=== PATIENT | male | born 1955 | race Caucasian/White ===

== ENCOUNTER 2023-01-01 08:30 | Emergency (ER) | payer OTHER ==
--- OUTSIDE RECORDS SUMMARY | 2023-01-01 08:34 | XMS REPORT | Clinical Summary ---
:1955 Author Organization [facility] MD [facility] Address [address] [place] [address] Care Team Providers Name Role Phone Deanna Sifuentes MD Unavailable Te Duque MD Primary Care Provider Leila Shelby [facility] Unavailable Unavailable Allergies Active Allergy Reactions Severity Noted Date Comments Sulfamethoxazole-Trimethoprim Hives High 08/19/2020 Sulfa (Sulfonamide Antibiotics) Hives High 0 Cimetidine Hives High 08/19/2020 Medications Medication Sig Dispensed Refills Start End Status Date Date verapamil (CALAN-SR) Take 1 tablet 0 08/05/20 Active 240 mg CR tablet by mouth 20 daily. fluticasone propionate Inhale 1 spray 0 Active (FLONASE) 50 mcg/spray into each nasal spray nostril as needed. atorvastatin (LIPITOR) Take 1 tablet 0 08/14/20 Active 40 mg tablet by mouth at 20 bedtime. aliskiren (TEKTURNA) Take 1 tablet 0 06/19/20 Active 150 mg tablet by mouth 20 daily. hydroCHLOROthiazide Take 1 tablet 0 Active (HYDRODIURIL) 25 mg by mouth tablet daily. fenofibrate Take 1 tablet 0 Acti ve nanocrystallized by mouth (TRICOR) 145 mg tablet daily. albuterol (VENTOLIN Inhale 1 puff 0 Active HFA,PROAIR HFA) 90 by mouth as mcg/puff inhaler needed. dicyclomine (BENTYL) Take 20 mg by 0 Active 20 mg tablet mouth twice daily. colesevelam (WELCHOL) Take 1,875 mg 0 Active 625 mg tablet by mouth 2 (two) times a day with meals. desvenlafaxine Take 100 mg by 0 Active (PRISTIQ) 100 mg 24 hr mouth daily. tablet eletriptan (RELPAX) 40 Take 40 mg by 0 Active MG tablet mouth as needed for migraine. may repeat in 2 hours if necessary atenolol (TENORMIN) 50 Take 50 mg by 0 Active mg tablet mouth. budesonide-formoterol Inhale 2 puffs 0 Active (SYMBICORT) 160-4.5 by mouth twice mcg/actuation inhaler daily. docusate sodium Take 1 capsule 30 capsule 0 09/26/20 Active (COLACE) 100 mg (100 mg) by 20 capsuleIndications: mouth 2 (two) Papillary thyroid times a day as carcinoma, needed for Post-surgical constipation. hypoparathyroidism, Postoperative hypothyroidism, Pyelonephritis, Severe sepsis without septic shock, not otherwise specified, Clostridioides difficile infection traMADol (ULTRAM) 50 Take 2 tablets 20 tablet 0 09/26/20 Active mg tabletIndications: (100 mg) by 20 Papillary thyroid mouth every 6 carcinoma (six) hours as needed for moderate pain. enoxaparin (Lovenox) Inject 0.9 mL 2 Syringe 0 10/02/20 Active 150 mg/mL prefilled (135 mg) under 20 syringeIndications: the skin every Hypercoagulable state 12 (twelve) hours. ergocalciferol Take 1 capsule 12 capsule 3 11/05/20 Active (DRISDOL) 50,000 units (50,000 Units) 20 capsuleIndications: by mouth every Vitamin D deficiency, 7 days. not otherwise specified rivaroxaban (XARELTO) Take 20 mg by 0 Active 20 mg tablet mouth daily. bumetanide (BUMEX) 1 Take 1 mg by 0 Active mg tablet mouth as needed. UNABLE TO FIND Hydrocortisone 0 Active -Acetic Acid 3-5 drops Ear prn eszopiclone (LUNESTA) Take 1 tablet 0 05/20/20 Active 2 mg tablet by mouth as 21 needed. omeprazole (PriLOSEC) Take 1 capsule 0 05/05/20 Active 40 MG capsule by mouth 21 daily. traZODone (DESYREL) Take 1 tablet 0 03/06/20 Active 300 mg tablet by mouth at 22 bedtime. ketoconazole (NIZORAL) Apply 1 0 06/20/20 Active 2% shampoo application 22 topically to affected area(s) daily. For psoriasis ketoconazole (NIZORAL) Apply 1 0 Active 2% cream application topically to affected area(s) as needed. For psoriasis rosuvastatin (CRESTOR) Take 1 tablet 0 10/17/20 Active 20 mg tablet by mouth 21 daily. potassium chloride Take 20 mEq by 0 Active (K-DUR,KLOR-CON M) 20 mouth as mEq tablet needed for hypokalemia. cholecalciferol, Take 5,000 0 Ac tive vitamin D3, (VITAMIN Units by mouth D3) 5,000 units tab daily. tablet Lactobacillus Take 1 tablet 0 Ac tive acidophilus (PROBIOTIC by mouth ORAL) daily. liothyronine (Cytomel) Take 1 tablet 90 tablet 3 06/18/20 Active 5 mcg (5 mcg) by 22 tabletIndications: mouth daily. Postoperative hypothyroidism levothyroxine Take 1 tablet 90 tablet 3 11/22/19 Ac tive (SYNTHROID, (300 mcg) by 23 LEVOTHROID) 300 mcg mouth daily. tabletIndications: Papillary thyroid carcinoma, Acquired hypothyroidism levothyroxine Take 2 tablets 180 tablet 3 02/11/20 Discontinued (SYNTHROID, (274 mcg) by 21 023 (Reor duy) LEVOTHROID) 137 mcg mouth daily. tabletIndications: Papillary thyroid carcinoma, Acquired hypothyroidism phentermine 37.5 MG Take 37.5 mg 0 05/29/20 capsule by mouth 22 022 daily. Active Problems Problem Noted Date Long-term drug therapy 02/10/2021 Post-surgical hypoparathyroidism 09/26/2020 Postoperative hypothyroidism 09/26/2020 Pyelonephritis 09/10/2020 Severe sepsis without septic shock 09/10/2020 Clostridioides difficile infection 09/10/2020 Papillary thyroid carcinoma 08/26/2020 Cancer Staging: Clinical: Stage II (cT1b , cN1b, cM0, Age at diagnosis: >= 55 years) - Signed by JAZMIN Kwok on 08/26/2020 Encounters Date Type Specialty Care Team Description 11/22/2022 Orders Only Endocrinology Amena Silvestre, Papillary thyroid carcinoma; PAPER CUTTER Acquired hypoth yroidism 11/18/2022 Documentation Endocrinology Walter Valderrama RN 10/16/2022 Orders Only Endocrinology Silvestre, Amena R, Postopera tive PAPER CUTTER hypothyroidism (Primary Dx) 09/29/2022 Documentation Endocrinology Walter Valderrama RN 06/18/2022 Office Visit Endocrinology Génesis Delarosa, Papillar y thyroid carcinoma (Primary Dx); Postoperative h ypothyroidism; Long-term drug therapy 06/18/2022 Ancillary Procedure Radiology Amena Silvestre R, Pap illary thyroid PAPER CUTTER carcinoma 06/18/2022 Ancillary Procedure Radiology Amena Silvestre R, Pap illary thyroid PAPER CUTTER carcinoma 06/18/2022 Hospital Encounter Lab Amena Silvestre R, Yossi llary thyroid PAPER CUTTER carcinoma 06/18/2022 Travel after 01/01/2022 Immunizations Name Administration Dates Next Due H1N1 All Forms 10/15/2009 Influenza (IM) Preservative Free 08/15/2009 Pneumococcal Conjugate 08/15/2007 Surgical History Surgery Date Site/Laterality Comments COLONOSCOPY 11/15/2006 - then about every 5 years. 11/14/2007 last 6 years ago . HERNIA REPAIR 11/15/2019 - bilateral 11/14/2020 CHOLECYSTECTOMY 11/15/2006 - 11/14/2007 UPPER GASTROINTESTINAL 11/15/2006 - then abou t every 5 years. ENDOSCOPY 11/14/2007 last 6 years ago . IVC FILTER PLACEMENT 11/15/2007 - removed 201 01/201411/14/2008 TN THYROIDECTOMY 09/25/2020 Neck/Bilateral Procedure: TOTA L OR TOTAL/COMPLETE COMPLETE THYROID ECTOMY WITH BILATERAL C ENTRAL NECK DISSECTION; Surgeon: Te Duque MD; Location: MAIN O R; Service: [facility] - HE AD & NECK SURGERY TN CERVICAL LYMPHADEC 09/25/2020 Neck/Right Procedure: RIGHT LATERAL MODIFIED RADICAL NECK DSJ LEVEL II-IV NECK DISSECTION; Surg tarah: Te Duque MD; L ocation: MAIN OR; Service : [facility] - HEAD & NECK SURG [place] Medical History Medical History Date Comments Cancer Gastroesophageal reflux disease Hypertension Hyperlipidemia 1985 Thrombosis 2004 with PE, then 2 jacklyn tional episodes of DVT's Migraine 2008 Cluster headaches Hearing loss 2016 hearing aids Functional visual loss 1964 eyeglasses Allergic rhinitis 1985 year round seasonal allergies, sinus too Pulmonary embolism 2004 Dependence on continuous positive 1994 airway pressure ventilation Gastric reflux 1996 Medel's Esophagus Gastric ulcer 1978 None since Diverticulitis 1996 Irritable bowel syndrome 1996 Blood coagulation disorder 2004 Hypercoagulat ion Arthritis 2010 Depressive disorder 1972 My dad when I w as 16. Sporadic depression since. Papillary thyroid carcinoma 2019 Papillary thyroid carcinoma 08/26/2020 Sleep apnea uses cpap Family History Medical History Relation Name Comments Thyroid disease Brother hypothyroidism Thyroid disease Father hyperthyroidism Lung cancer Paternal Grandfather Wood Omer it started in lungs then went all over Relation Name Status Comments Brother Father Paternal Grandfather Wood Omer Social History Tobacco Use Types Packs/Day Years Used Date Smoking Tobacco: Former Cigarettes 0 15 Pipe Cigars Smokeless Tobacco: Former Qu it: 05/18/1991 Alcohol Use Standard Drinks/Week Comments Not Currently 0 (1 standard drink = 0.6 oz pure alcoho l) None since 1987 Sex Assigned at Date Recorded Not on file Job Start Date Occupation Industry Not on file Not on file Not on file Obstetrics History Last Filed Vital Signs Vital Sign Reading Time Taken Comments Blood Pressure 149/94 06/18/2022 1:26 PM CDT Pulse 63 06/18/2022 1:26 PM CDT Temperature 37 C (98.6 F) 06/18/2022 1:26 PM CDT Respiratory Rate 16 06/18/2022 1:26 PM CDT Oxygen Saturation 95% 06/18/2022 1:26 PM CDT Inhaled Oxygen Concentration - - Weight 139.3 kg (307 lb 1.6 oz) 06/18/2022 1:26 PM CDT Height - - Body Mass Index 45.49 10/02/2020 2: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 Plan of Treatment Date Type Specialty Care Team Description 06/21/2023 Appointment Lab Aemna Silvestre APN [address] [place], [place] [address] ([place]) 06/21/2023 Ancillary Procedure Radiology Itzel Silvestre APN [address], [place] [address] ([place]) 06/21/2023 Ancillary Procedure Radiology Itzel Silvestre APN [address], [place] [address] ([place]) 06/21/2023 Follow-Up Endocrinology Nina Delarosa MD [address], [place] [address] ([place]) Health Maintenance Due Date Last Done Comments COVID-19 Vaccination (#1) 1955 Procedures Procedure Name Priority Date/Time Associated Comments Diagnosis CT CHEST W CONTRAST Routine 06/18/2022 11:35 Papillary thyroid Results for this AM CDT carcinoma procedure are i n the results section. POC CREATININE Routine 06/18/2022 10:52 Results f or this AM CDT procedure are i n the results section. US HEAD NECK SOFT Routine 06/18/2022 10:27 Papillary thyroid R esults for this TISSUE AM CDT carcinoma procedure are i n the results section. THYROGLOBULIN ANTIBODY Routine 06/18/2022 8:56 AM Papillary th yroid Results for this CDT carcinoma procedure are i n the results section. FREE THYROXINE Routine 06/18/2022 8:56 AM Papillary thyroid Re sults for this CDT carcinoma procedure are i n the results section. THYROID STIMULATING Routine 06/18/2022 8:56 AM Papillary thyro id Results for this HORMONE CDT carcinoma procedure are i n the results section. after 01/01/[address] Chest with Contrast (06/18/2022 11:35 AM CDT) Anatomical Region Laterality Modality Chest Computed Tomography Specimen (Source) Anatomical Collection Method Collection Time Re ceived Time Location / / Volume Laterality 06/18/2022 1:10 PM CDT Impressions 06/18/2022 1:15 PM CDT Small lung nodules not exceeding 5 mm ar e unchanged from 2019 and remain nonspecific. Narrative 06/18/2022 1:15 PM CDT FULL RESULT: Examination: CT Chest with IV contrast, 06/18/2022 11:35 AM Clinical History: Papillary thyroid carc inoma Indication: Cancer staging or restaging Comparison: Chest CT 06/16/2021; [facility] chest CT 09/08/2020 Technique: Contiguous CT images through the chest were acquired following the administration of intravenous contrast. Coronal and sagittal multiplanar reformats and maximum intensity projection (MIP) images were performed. Findings: The thyroid gland is resected. For complete evaluation of the surgical bed please see separately reported ultrasound neck 06/18/2022. There is a 2 mm left upper lobe nodule ( image 51, series 302) and a 5 mm right lower lobe nodule (image 70), both unchanged from 2020. No new or enlarging pulmonary nodule. No acute infectious consolidation. No pleural effusion. No enlarged mediastinal, hilar or axilla ry lymph nodes by CT size criteria. The heart is normal in size without ruben cardial effusion. The thoracic aorta and main pulmonary trunk are normal in diameter. The esophagus is nondistended and normal in course. Images through the upper abdomen demonstrate prior cholecystectomy. No focal hepatic or splenic lesion. There are accessory splenules. The adrenal gla nds have normal morphology. The upper po les of the kidneys are within normal limits. No bone lesion or acute bone fracture in the thorax. Procedure Note de Ana Corado MD - 06/18/2022Forma tting of this note might be different from the original. FULL RESULT: Examination: CT Chest with IV contrast, 06/18/2022 11:35 AM Clinical History: Papillary thyroid carc inoma Indication: Cancer staging or restaging Comparison: Chest CT 06/16/2021; [facility] chest CT 09/08/2020 Technique: Contiguous CT images through the chest were acquired following the administration of intravenous contrast. Coronal and sagittal multiplanar reformats and maximum intensity projection (MIP) images were performed. Findings: The thyroid gland is resected. For complete evaluation of the surgical bed please see separately reported ultrasound neck 06/18/2022. There is a 2 mm left upper lobe nodule ( image 51, series 302) and a 5 mm right lower lobe nodule (image 70), both unchanged from 2020. No new or enlarging pulmonary nodule. No acute infectious consolidation. No pleural effusion. No enlarged mediastinal, hilar or axilla ry lymph nodes by CT size criteria. The heart is normal in size without ruben cardial effusion. The thoracic aorta and main pulmonary trunk are normal in diameter. The esophagus is nondistended and normal in course. Images through the upper abdomen demonstrate prior cholecystectomy. No focal hepatic or splenic lesion. There are accessory splenules. The adrenal glands have normal morphology. The upper poles of th e kidneys are within normal limits. No bone lesion or acute bone fracture in the thorax. IMPRESSION: Small lung nodules not exceeding 5 mm ar e unchanged from 2019 and remain nonspecific. Amena Silvestre APN G CT ORDERABLES POC Creatinine (06/18/2022 10:52 AM CDT) P athologist Signature POC Crea 1.2 0.6 - 1.3 POC [facility] mg/dL Comment: Medications, especially hydroxyurea or s upplements, such as ascorbate, can interfere with test results causing a falsely and significantly higher result than expected. If a problem is suspected with a patient's result, a sample should be sent to the laboratory for confirmatory testing. Method description: The i-STAT is an jodi lyzer used for in vitro quantification of various analytes in whole blood. The device uses a single disposable cartridge which contains microfabricated sensors, a calibration solution, fluidics system, and a waste chamber. Each test cartridge contains ch emically sensitive biosensors on a silicon chip that are configured to perform specific tests. The microfabricated sensors measure analyte concentration by an electrochemical assay. POC eGFR-AA 73 >=60 mL/min/1.73 m2 POC [facility] OR Comment: Normal eGFR >= 60 mL/min/1.73 m2 The eGFR is calculated using the CKD-EPI equation. The eGFR declines with age. eGFR <60 mL/min/1.73 m2 is considered as "decreased" This equation should only be used for patients 18 and older. According to the National Kidney Found[employer] ion's Kidney Disease Outcome Quality Initiative (KDOQI) classification and 2012 Kidney Disease Improving Global Outcomes (KDIGO) Clinical Practice Guideline, the stage of CKD should be categorized based on estimated GFR. Stage Description GFR mL/min/1.73 m2 1 Kidney damage with normal or high GFR >=90 2 Kidney damage with mild decrease in GF R 60-89 3a Mild to moderate decrease in GFR 45-59 3b Moderate to severe decrease in GFR 30-44 4 Severe decrease in GFR 15-29 5 Kidney failure <15 (or dialysis) POC eGFR-NERIS 63 >=60 mL/min/1.73 m2 POC [facility] Comment: Normal eGFR >= 60 mL/min/1.73 m2 The eGFR is calculated using the CKD-EPI equation. The eGFR declines with age. eGFR <60 mL/min/1.73 m2 is considered as "decreased" This equation should only be used for patients 18 and older. According to the National Kidney Foundat ion's Kidney Disease Outcome Quality Initiative (KDOQI) classification and 2012 Kidney Disease Improving Global Outcomes (KDIGO) Clinical Practice Guideline, the stage of CKD should be categorized based on estimated GFR. Stage Description GFR mL/min/1.73 m2 1 Kidney damage with normal or high GFR >=90 2 Kidney damage with mild decrease in GF R 60-89 3a Mild to moderate decrease in GFR 45-59 3b Moderate to severe decrease in GFR 30-44 4 Severe decrease in GFR 15-29 5 Kidney failure <15 (or dialysis) POC Clean Dev Yes POC [facility] Performing Lab [facility] POC TELCO R Comment: [facility], [address] [place] [address]; Lab Direct or: Stephie Lewis MD Specimen Anatomical Collection Method Collection Time Receive d Time (Source) Location / / Volume Laterality Blood 06/18/2022 10:52 06/18/2022 AM CDT 10:52 AM CDT Amena Silvestre APN POCT ORDERABLES - DEVICE Performing Organization Address City/State/ZIP Code Phon e Number POC [facility] Unless otherwise noted, [place] [address] lab tests performed by: Division of Pathology and Laboratory Medicine [address] [place] [address] POC [facility] US Head Neck Soft Tissue (06/18/2022 10:27 AM CDT) Anatomical Region Laterality Modality Head, Neck Ultrasound Specimen (Source) Anatomical Collection Method Collection Time Re ceived Time Location / / Volume Laterality 06/18/2022 10:20 AM CDT Impressions 06/18/2022 11:03 AM CDT 1. Tiny indeterminate nodules in the thyroidectomy bed are favored benign, to be followed. 2. No cervical adenopathy. Narrative 06/18/2022 11:03 AM CDT FULL RESULT: Examination: US HEAD NECK SOFT TISSUE on 06/18/2022 10:27 AM Clinical History: 67-year-old male with history of papillary thyroid carcinoma. Indication: Follow-up Comparison: Technique: Real-time ultrasound examinat ion of the neck soft tissues was performed. FINDINGS: Right Thyroid Bed: A small nodule rabbet operator ior to the carotid in the right thyroidectomy bed is stable and measures 0.4 x 0.9 x 0.3 cm. Left Thyroid Bed: Clear. Suprasternal and Superior Mediastinal: T wo tiny nodules in the suprasternal compartment measures 0.3 x 0.3 x 0.2 cm and 0.4 x 0.3 x 0.3 cm. These are favored to represent benign lymph nodes. Right Lateral Neck: Clear. Left Lateral Neck: A lymph node in the l eft mid to inferior neck measures 1.4 x 1.6 x 0.7 cm and demonstrates prominent slightly irregular central fatty hilum. Correlation with CT neck dated 06/16/2021 an d dating back to 08/26/2020 demonstrates a lymph node in this location which has remained stable in size and appearance. Submental to Cricoid: Clear. Procedure Note Gem Miller MD - 06/18/2022 FULL RESULT: Examination: US HEAD NECK SOFT TISSUE on 06/18/2022 10:27 AM Clinical History: 67-year-old male with history of papillary thyroid carcinoma. Indication: Follow-up Comparison: Technique: Real-time ultrasound examinat ion of the neck soft tissues was performed. FINDINGS: Right Thyroid Bed: A small nodule rabbet operator ior to the carotid in the right thyroidectomy bed is stable and measures 0.4 x 0.9 x 0.3 cm. Left Thyroid Bed: Clear. Suprasternal and Superior Mediastinal: T wo tiny nodules in the suprasternal compartment measures 0.3 x 0.3 x 0.2 cm and 0.4 x 0.3 x 0.3 cm. These are favored to represent benign lymph nodes. Right Lateral Neck: Clear. Left Lateral Neck: A lymph node in the l eft mid to inferior neck measures 1.4 x 1.6 x 0.7 cm and demonstrates prominent slightly irregular central fatty hilum. Correlation with CT neck dated 06/16/2021 and dating back to 08/26/2020 demonstrates a lymph node in this location which has remained stable in size and appearance. Submental to Cricoid: Clear. IMPRESSION: 1. Tiny indeterminate nodules in the thy roidectomy bed are favored benign, to be followed. 2. No cervical adenopathy. Amena Silvestre APN IMG US ORDERABLES (ABNORMAL) Thyroglobulin (06/18/2022 8:56 AM CDT) Analysis Performed At Patho logist Time Signature Thyroglobulin <0.10 (L) 1.59 - UT 50.03 [facility] ng/mL [facility] Comment: Reference range in athyrotic patients is <0.1 ng/mL. Due to varying antigen specificity, affi nity and avidity of capture and conjugate antibodies in their epitope reactions, some thyroglobulin samples may not dilute linearly when results exceed 450 ng/mL. Thyroglob Ab <0.9 <=3.9 IU/ml [facility] [place] Comment: Due to varying antigen specific ity, affinity and avidity of capture and conjugate antibodies in their epitope re actions, some thyroglobulin antibody samples may not dilute linearly when results exc eed 1650 IU/mL. Specimen Anatomical Collection Method Collection Time Receive d Time (Source) Location / / Volume Laterality Blood 06/18/2022 8:56 AM 2 9:23 CDT AM CDT Amena Silvestre APN LAB BLOOD ORDERABLES Performing Organization Address City/[facility]/ZIP Code Phon e Number [facility] Unless otherwise noted, [place] [address] [place] all lab tests performed by: Division of Pathology and Laboratory Medicine [address] [place], [place] [address] (ABNORMAL) TSH (06/18/2022 8:56 AM CDT) P athologist Signature TSH 8.63 (H) 0.27 - 4.20 [facility] mcunit/mL Comment: Note: New Methodology and Reference Ra nge change effective 03/03/2018 at 1400 Testing Performed at [facility] Lab [facility], [address] [place] [address], [address], [place] [address] Specimen Anatomical Collection Method Collection Time Receive d Time (Source) Location / / Volume Laterality Blood 06/18/2022 8:56 AM 2 9:05 CDT AM CDT Amena Silvestre PAPER CUTTER LAB BLOOD ORDERABLES Performing Organization Address City/[facility]/ZIP Code Phon e Number [facility] [address] [place] [address]. [place] [address] [address] Free T4 (06/18/2022 8:56 AM CDT) athologist Signature T4 Free 1.45 0.93 - 1.70 [facility] ng/dL Comment: Testing Performed at [facility] Lab Am [facility], [address], [address], [place] [address] Specimen Anatomical Collection Method Collection Time Receive d Time (Source) Location / / Volume Laterality Blood 06/18/2022 8:56 AM 9:05 CDT AM CDT Amena Silvestre APN LAB BLOOD ORDERABLES Performing Organization Address City/State/ZIP Code Phon e Number [facility] [address] [place] [address] [address] after 01/01/2022 Insurance Payer Benefit Plan / Subscriber ID Effective Phone Address T ype Group Dates [facility] MEDICARE [id number] 2022-Prese [address] [address] Medicare HEALTHCARE ADVANTAGE [place] [id number] Advance Directives Code Status Date Activated Date Inactivated Comments Full Code 09/25/2020 4:58 PM 09/26/2020 7:53 PM Code Status Date Activated Date Inactivated Comments Full Code 09/09/2020 4:17 AM 09/13/2020 5:34 PM Care Teams Magazine Keeper Relationship Specialty Start Date End Date Deanna Sifuentes MD PCP - External Medical Oncology 07/25/[address] Referring [address] [place] [address] Te Duque MD PCP - General Head and Neck 08/09/20 [address] [place] [address] Leila Shelby, Speech Language Speech Pathology 09/26/20 CCC-NUCLEAR PHARMACIST Pathologist
--- OUTSIDE RECORDS SUMMARY | 2023-01-01 08:37 | XMS REPORT | Continuity of Care Document ---
:1955 Author Organization [facility] t Address [address] [place] [address] Dr. Tejeda[address] [place] [address] Care Team Providers Name Role Phone REE DOZIER Primary Care Physician Unavailable SYSTEM, PROVIDER NOT IN Attending Clinician Unavailable CHRIST VIDALES Attending Clinician Unavailable Amena Lgoan APN Attending Clinician Jannie BURGOS, Walter Narvaez Attending Clinician AMENA LOGAN Attending Clinician Unavailable DR REE DOZIER Attending Clinician Unavailable [phone] Attending Clinician Unavailable AMENA LOGAN Attending Clinician Unavailable Génesis Delarosa MD Attending Clinician GÉNESIS DELAROSA Attending Clinician Unavailable [email or web address]_R Attending Clinician Unavailable Ruba Arce Attending Clinician [phone] Yan_W Attending Clinician Unavailable IHDE_G Attending Clinician Unavailable DR PAN TEJADA Attending Clinician Unavailable LEYDI BANKS Attending Clinician Unavailable MONSERRAT FERRARI Attending Clinician Unavailable Raju_P Attending Clinician Unavailable MARILYN BRADSHAW Attending Clinician Unavailable LOIS LÓPEZ Attending Clinician Unavailable FABIEN LANGLEY Attending Clinician Unavailable EDMUND OLIVEROS Attending Clinician Unavailable JORGE A BROOKS Attending Clinician Unavailable JUSTO RAMIREZ Attending Clinician Unavailable HENRY MARTÍNEZ Attending Clinician Unavailable DANNY PAULA Attending Clinician Unavailable Bear Nichols Attending Clinician Unavailable Bear Nichols Attending Clinician Unavailable CHRIST VIDALES Admitting Clinician Unavailable DR REE DOZIER Admitting Clinician Unavailable GC_WPSA_Awan_R Admitting Clinician Unavailable Yan_W Admitting Clinician Unavailable IHDE_G Admitting Clinician Unavailable DR PAN TEJADA Admitting Clinician Unavailable Rajakin_P Admitting Clinician Unavailable LEATHA PALMER Admitting Clinician Unavailable Bear Nichols Admitting Clinician Unavailable Payers Payer Name Policy Type Policy Number Effective Date Expiration Date [facility] [id number] HEALTHSELECT-WALK/[place] [id number] 2017 BLUE/BLUE 00:00:00 [employer]SSENTIALS [facility] [id number] (MEDICARE REPLACEMENT/ADVANTA GE - PPO) [place]: [id number] [employer] [place] [id number] 2017 (POS) 00:00:[place] [id number] 2017 00:00:[place] [id number] 2017 ADVANTAGE (HMO) 00:00:00 Problems Condition Condition Condition Status Onset Resolution Last Treating Co mments Source Name Details Category Date Date Treatment Clinician Date Hypothyroi Hypothyroi Problem Active M [facility] dism dism 8-17 da 00:00: Medical 00 Group Hypertensi Hypertensi Problem Active M [facility] ve ve 8-17 da disorder Disorder 00:00: Medica l 00 Group Irritable Irritable Problem Active [place] bowel Bowel 8-17 da syndrome Syndrome 00:00: Medica l Group Serum Serum Problem Active [place] triglyceri Triglyceri 8 da cassandra cassandra 00:00: Medical borderline Borderline 00 Gr oup high High Long-term Long-term Disease Active Uni vers drug drug 3-29 ity of therapy therapy 00:00: [place] 00 MD [facility] Post-surgi Post-surgi Disease Active 2019- U nivelise isaac isaac 1-12 ity of hypoparath [place] y[place] yroidism 00 MD Tonya leonard [facility] Postoperat Postoperat Disease Active 2019- U shyam andreina andreina 1-12 ity of hypothyroi [place]ro[place] dis[place] dism 00 MD Tonya leonard [facility] Pyelonephr Pyelonephr Disease Active 2019-11 U shyam itis itis 0-27 ity of 00:00: [place] 00 MD Tonya leonard [facility] Severe Severe Disease Active 2019-11 Univers sepsis sepsis 0-27 ity of without without 00:00: [place] septic septic 00 shock shock [facility] Clostridio Clostridio Disease Active 2019-11 U shyam ides ides 0-27 ity of difficile difficile 00:00: [place] rashid infection infection 00 MD Tonya leonard [facility] 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 00:00: [place] s 00 MD Tonya leonard [facility] Migraine Migraine Problem Active [facility] 2-17 Medical 00:00: 00 Decreased Decreased Problem Active Cha via hearing Hearing 2-17 Medical 00:00: 00 Decreased Decreased Problem Active Cha via testostero Testostero 2-17 Me dical ne level ne Level 00:00: 00 Hyperlipid Hyperlipid Problem Active P rivia emia emia 8- Medical 00:00: 00 Insomnia Insomnia Problem Active [facility] 8-22 Medical 00:00: 00 Cluster Cluster Problem Active [facility]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 Headache 07-06 Medica l 00:00: 00 Hypertensi Hypertensi Problem Active P [facility]ia ve ve - Medical disorder Disorder 00:00: 00 Seasonal Seasonal Problem Active [facility] allergy Allergy - Medical 00:00: 00 Acid Acid Problem Active [facility] reflux Reflux - Medical 00:00: 00 Allergies, Adverse Reactions, Alerts Allergy Allergy Status Severity Reaction(s) Onset Inactive Treating Comm ents Source Name Type Date Date Clinician SULFAMET DRUG Active Hives 2020- MD HOXAZOLE 0-05 Anderso -TRIMETH 00:00: n OPRIM 00 SULFA Drug Active Hives 2020-1 MD (SULFONA Class 0-05 Anderso MIDE 00:00: n ANTIBIOT 00 ICS) CIMETIDI DRUG Active Hives 2020-1 NE INGREDI 0-05 Anderso 00:00: n 00 SULFAMET DRUG Active Hives 2020-1 MD HOXAZOLE 0-05 Anderso -TRIMETH 00:00: n OPRIM 00 SULFA Drug Active Hives 2020-1 MD (SULFONA Class 0-05 Anderso MIDE 00:00: n ANTIBIOT 00 ICS) CIMETIDI DRUG Active Hives 2020-1 NE INGREDI 0-05 Anderso 00:00: n 00 SULFAMET DRUG Active Hives 2020-1 MD HOXAZOLE 0-05 Anderso -TRIMETH 00:00: n OPRIM 00 SULFA Drug Active Hives 2020-1 MD (SULFONA Class 0-05 Anderso MIDE 00:00: n ANTIBIOT 00 ICS) CIMETIDI DRUG Active Hives 2020-1 NE INGREDI 0-05 Anderso 00:00: n 00 SULFAMET DRUG Active Hives 2020-1 MD HOXAZOLE 0-05 Anderso -TRIMETH 00:00: n OPRIM 00 SULFA Drug Active Hives 2020-1 MD (SULFONA Class 0-05 Anderso MIDE 00:00: n ANTIBIOT 00 ICS) CIMETIDI DRUG Active Hives 2020-1 NE INGREDI 0-05 Anderso 00:00: n 00 SULFAMET DRUG Active Hives 2020-1 MD HOXAZOLE 0-05 Anderso -TRIMETH 00:00: n OPRIM 00 SULFA Drug Active Hives 2020-1 MD (SULFONA Class 0-05 Anderso MIDE 00:00: n ANTIBIOT 00 ICS) CIMETIDI DRUG Active Hives 2020-1 NE INGREDI 0-05 Anderso 00:00: n 00 SULFAMET DRUG Active Hives 2020-1 MD HOXAZOLE 0-05 Anderso -TRIMETH 00:00: n OPRIM 00 SULFA Drug Active Hives 2020-1 MD (SULFONA Class 0-05 Anderso MIDE 00:00: n ANTIBIOT 00 ICS) CIMETIDI DRUG Active Hives 2020-1 MD NE INGREDI 0-05 Anderso 00:00: n 00 SULFAMET DRUG Active Hives 2020-1 MD HOXAZOLE 0-05 Anderso -TRIMETH 00:00: n OPRIM 00 SULFA Drug Active Hives 2020-1 MD (SULFONA Class 0-05 Anderso MIDE 00:00: n ANTIBIOT 00 ICS) CIMETIDI DRUG Active Hives 2020-1 MD NE INGREDI 0-05 Anderso 00:00: n 00 SULFAMET DRUG Active High Hives 2020-1 MD HOXAZOLE 0-05 Anderso -TRIMETH 00:00: n OPRIM 00 SULFA Drug Active High Hives 2020-1 MD (SULFONA Class 0-05 Anderso MIDE 00:00: n ANTIBIOT 00 ICS) CIMETIDI DRUG Active High Hives 2020-1 MD NE INGREDI 0-05 Anderso 00:00: n 00 SULFAMET DRUG Active High Hives 2020-1 MD HOXAZOLE 0-05 Anderso -TRIMETH 00:00: n OPRIM 00 SULFA Drug Active High Hives 2020-1 MD (SULFONA Class 0-05 Anderso MIDE 00:00: n ANTIBIOT 00 ICS) CIMETIDI DRUG Active High Hives 2020-1 MD NE INGREDI 0-05 Anderso 00:00: n 00 SULFAMET DRUG Active High Hives 2020-1 MD HOXAZOLE 0-05 Anderso -TRIMETH 00:00: n OPRIM 00 SULFA Drug Active High Hives 2020-1 MD (SULFONA Class 0-05 Anderso MIDE 00:00: n ANTIBIOT 00 ICS) CIMETIDI DRUG Active High Hives 2020-1 MD NE INGREDI 0-05 Anderso 00:00: n 00 SULFAMET DRUG Active High Hives 2020-1 MD HOXAZOLE 0-05 Anderso -TRIMETH 00:00: n [place]PR[place] 00 SULFA Drug Active High Hives 2020-1 MD (SULFONA Class 0-05 Anderso MIDE 00:00: n ANTIBIOT 00 ICS) CIMETIDI DRUG Active High Hives 2020-1 MD NE INGREDI 0-05 Anderso 00:00: n 00 SULFAMET DRUG Active High Hives 2020-1 MD HOXAZOLE 0-05 Anderso -TRIMETH 00:00: n OPR[place] 00 SULFA Drug Active High Hives 2020-1 MD (SULFONA Class 0-05 Anderso MIDE 00:00: n ANTIBIOT 00 ICS) CIMETIDI DRUG Active High Hives 2020-1 NE INGREDI 0-05 Anderso 00:00: n 00 SULFAMET DRUG Active High Hives 2020-1 HOXAZOLE 0-05 Anderso -TRIMETH 00:00: n OPRIM 00 SULFA Drug Active High Hives 2020-1 (SULFONA Class 0-05 Anderso MIDE 00:00: n ANTIBIOT 00 ICS) CIMETIDI DRUG Active High Hives 2020-1 NE INGREDI 0-05 Anderso 00:00: n 00 Sulfamet Propensi Active Hives 2020- Univer s hoxazole ty to 0-05 ity of -Trimeth adverse 00:00: [place] oprim reaction 00 MD rachid Castaneda [facility] Sulfa Propensi Active Hives 2020-1 Univers (Sulfona ty to 0-05 ity of mide adverse 00:00: [place] Antibiot reaction 00 ics) [facility] Cimetidi Propensi Active Hives 2020- Univer s ne ty to 0-05 ity of adverse 00:00: [place] reaction 00 [facility] SULFA Allergy Active [facility] (SULFONA to Medical MIDE substanc ANTIBIOT e ICS) sulfa Drug Active hives [facility] Bactrim Drug Active hives [facility] No Known Drug Active [facility] Sulfa DA Active Unknown Hives [facility] (Sulfona Medical mides) Center Tagamet DA Active Unknown Hives [facility] Bactrim DA Active Unknown Hives [facility] BACTRIM DA Active UNKNOWN Anaphylaxis [facility] SULFA DA Active UNKNOWN Anaphylaxis [place] [facility] [place] [facility] TAGAMET Allergy Active Rash [place] to da substanc Medical e Group CIMETIDI DA Active UNKNOWN Hives [facility] Bactrim Allergy Active Rash [facility] to Medical substan e Family History Family Member Diagnosis Comments Start Date Stop Date Source Natural brother Thyroid disease Univ ersity of [facility] Natural father Thyroid disease Unive rsity of [facility] Paternal grandfather Lung cancer Uni versity of [facility] Social History Social Habit Start Date Stop Date Quantity Comments Source History of Current smoker University of tobacco use [place] MD Still [facility] Alcohol intake 2020-10-02 2020-10-02 Ex-drinker University 00:00:00 00:00:00 (finding) [place] MD Higgins [facility] Cigarette 2020-08-26 2020-08-26 University of pack-years 00:00:00 00:00:00 Ying Higgins [facility] Tobacco use and 2020-08-26 2020-08-26 Former smokeless Uni versity of exposure 00:00:00 00:00:00 tobacco user Ying Zhao [facility] Alcohol Comment 2020-08-26 2020-08-26 None since 1987 Univ ersity of 00:00:00 00:00:00 [place] MD Higgins [facility] Sex [birth year] Universit y of 00:00:00 00:00:00 [place] MD Higgins [facility] Smoking Status Start Date Stop Date Source Tobacco smoking [facility] consumption unknown Ex-smoker 2020-08-26 00:00:00 2020-08-26 [facility] [facility] f Ying MARRERO 00:00:00 [facility] Medications Ordered Filled Start Stop Current Ordering Indication Dosage Frequency Signature Comments Components Source Medication Medication Date Date Medication? Clinician (SIG) Name Name levothyroxi Yes Acquired 300ug Take 1 Univers ne 1-08 hypothyroid tablet ity of (SYNTHROID, 00:00: ism (300 mcg) [place] LEVOTHROID) 00 by mouth 300 mcg daily. Anderso tablet [facility] potassium Yes 20meq Take 20 Univ ers chloride 8-04 mEq by ity of (K-DUR,KLOR 14:14: [place] -CON M) 20 32 needed for mEq tablet hypokalemi And erso a. n [facility] cholecalcif Yes 5000U Take 5,000 Univers tj, 8-04 Units by ity of vitamin D3, 14:14: mouth [place] (VITAMIN 32 daily. D3) 5,000 Anderso units tab n tablet [facility] Lactobacill Yes 1{tbl} Take 1 Un jose us 8-04 tablet by ity of acidophilus 14:14: mouth [place] (PROBIOTIC 32 daily. ORAL) [facility] albuterol Yes 1{puff} Inhale 1 U nivers (VENTOLIN 8-04 puff by ity of HFA,PROAIR 14:07: mouth as Atif as HFA) 90 12 needed. MD mcg/puff Anderso inhaler [facility] budesonide- Yes 2{puff} Inhale 2 Univers formoterol 8-04 puffs by ity o f (SYMBICORT) 14:07: mouth [place] 160-4.5 12 twice MD mcg/actuati daily. [place] o on inhaler n [facility] ketoconazol Yes 1{appli Apply 1 Univers e (NIZORAL) 8-04 cation} applicatio ity of 2% cream 14:07: n [place] 12 [facility]ically [facility] [address] affected n area(s) as Cancer needed. [place] For psoriasis fluticasone Yes 1{spray Inhale 1 Univers propionate 8-04 } spray into ity of (FLONASE) 14:03: each [place] 50 08 nostril as MD mcg/spray [facility]. [facility] hydroCHLORO Yes 1{tbl} Take 1 Un jose thiazide 8-04 tablet by ity of (HYDRODIURI 14:03: mouth [place] L) 25 mg 08 daily. tablet [facility] fenofibrate Yes 1{tbl} Take 1 Un jose nanocrystal 8-04 tablet by ity of lized 14:03: mouth [place] (TRICOR) 08 daily. 145 mg Andeliseo tablet [facility] dicyclomine Yes 20mg Take 20 mg Univers (BENTYL) 20 8-04 by mouth ity of mg tablet 14:03: twice [place] 08 daily. MD [facility] colesevelam Yes 1875mg Take 1,875 Univers (WELCHOL) 8-04 mg by ity of 625 mg 14:03: mouth 2 [place] tablet 08 (two) MD times a [place] day with n meals. [facility] desvenlafax Yes 100mg Take 100 U nivers ine 8-04 mg by ity of (PRISTIQ) 14:03: mouth [place] 100 mg 24 08 daily. hr tablet [facility] eletriptan Yes 40mg Take 40 mg U nivers (RELPAX) 40 8-04 by mouth ity of MG tablet 14:03: as needed Atif as 08 for migraine. Tony[place] may repeat n in 2 hours Cancer if Center necessary atenolol Yes 50mg Take 50 mg Uni vers (TENORMIN) 804 by mouth. ity of 50 mg 14:03: [place] tablet 08 MD Tonya leonard [facility] rivaroxaban Yes 20mg Take 20 mg Univers (XARELTO) 804 by mouth ity of 20 mg 14:03: daily. [place] tablet 08 MD Tonya leonard [facility] bumetanide Yes 1mg Take 1 mg Un jose (BUMEX) 1 804 by mouth ity of mg tablet 14:03: [place]. [place] 08 [place] leonard [facility] UNABLE TO Yes Hydrocorti Un jose FIND 04 sone-Aceti ity of 14:03: c Acid 3-5 [place] 08 drops Ear prhoracio [facility] liothyronin Yes Postoperati 5ug Take 1 Univers e (Cytomel) 8-04 ve tablet (5 ity of 5 mcg 00:00: hypothyroid mcg) by [place] tablet 00 ism mouth daily. [facility] phentermine 2021- No 37.5mg Take 37.5 Univers 37.5 MG 7-15 08-15 mg by ity of capsule 00:00: 04:59 mouth [place] 00 :00 daily. MD Tonya leonard [facility] ketoconazol Yes 1{appli Apply 1 Univers e (NIZORAL) 6-20 cation} applicatio ity of 2% shampoo 00:00: n [place] 00 topically to [place] affected n area(s) Cancer daily. [facility] psoriasis traZODone Yes 1{tbl} Take 1 Univ ers (DESYREL) 4-22 tablet by ity o f 300 mg 00:00: mouth at [place] tablet 00 bedtime. MD Tonya leonard [facility] rosuvastati 2020-11 Yes 1{tbl} Take 1 Un jose n (CRESTOR) 2-03 tablet by ity of 20 mg 00:00: mouth [place] tablet 00 daily. MD Tonya leonard [facility] eszopiclone Yes 1{tbl} Take 1 Un jose (LUNESTA) 2 7-06 tablet by ity of mg tablet 00:00: [place] 00 needed. MD [place]a leonard [facility] omeprazole Yes 1{capsu Take 1 Un jose (PriLOSEC) 6-21 le} capsule by ity of 40 MG 00:00: mouth [place] capsule 00 daily. MD Tonya leonard [facility] levothyroxi 2022- No Acquired 274ug Take 2 Univers ne 3-29 01-08 hypothyroid tablets ity of (SYNTHROID, 00:00: 00:00 ism (274 mcg) [place] LEVOTHROID) 00 :00 by mouth 137 mcg daily. Anderso tablet n [facility] ergocalcife 2019-11 Yes Vitamin D 14929R Take 1 Univers rol 2-22 deficiency, capsule ity o f (DRISDOL) 00:00: not (50,000 [place] 50,000 00 otherwise Units) by units specified mouth Anderso capsule every 7 n days. [facility] enoxaparin 2019-11 Yes Hypercoagul 135mg Inject 0.9 Univers (Lovenox) 1-18 able state mL (135 i ty of 150 mg/mL 00:00: mg) under Atif as prefilled 00 the skin syringe every 12 Anderso (twelve) n hours. Cancer [place] docusate 2019-11 Yes Clostridioi 100mg Take 1 Univers sodium 1-12 cassandra capsule ity of (COLACE) 00:00: difficile (100 mg) [place] 100 mg 00 infection by mouth 2 MD capsule (two) Anderso times a n day as Cancer needed for Center constipati on. traMADol 2019-11 Yes Papillary 100mg Take 2 U nivers (ULTRAM) 50 1-12 thyroid tablets it y of mg tablet 00:00: carcinoma (100 mg) [place] 00 by mouth MD every 6 Anderso (six) n hours as Cancer needed for Center moderate pain. atorvastati Yes 1{tbl} Take 1 Un jose n (LIPITOR) 9-30 tablet by ity of 40 mg 00:00: mouth at [place] tablet 00 bedtime. MD [facility] verapamil 2019-0 Yes 1{tbl} Take 1 Univ ers (CALAN-SR) 9-21 tablet by ity of 240 mg CR 00:00: mouth [place] tablet 00 daily. MD [facility] aliskiren Yes 1{tbl} Take 1 Univ ers (TEKTURNA) 8-05 tablet by ity of 150 mg 00:00: mouth [place] tablet 00 daily. MD [facility] amoxicillin amoxicillin No amoxicilli [facility] 875 mg 875 mg 6-19 n 875 mg Medical tablet Take tablet Take 00:00: tablet 1 tablet 1 tablet 00 Take 1 every 12 every 12 tablet hours by hours by every 12 oral route oral route hours by for 10 for 10 oral route days. days. for 10 days. amoxicillin amoxicillin No amoxicilli [facility] 875 mg 875 mg 6-19 n 875 mg Medical tablet Take tablet Take 00:00: tablet 1 tablet 1 tablet 00 Take 1 every 12 every 12 tablet hours by hours by every 12 oral route oral route hours by for 10 for 10 oral route days. days. for 10 days. furosemide furosemide No furosemide [facility] 40 mg 40 mg 5-18 40 mg Medical tablet Take tablet Take 00:00: tablet 1 tablet by 1 tablet by 00 Take 1 mouth every mouth every tablet by day day mouth every day furosemide furosemide No furosemide [facility] 40 mg 40 mg 5-18 40 mg Medical tablet Take tablet Take 00:00: tablet 1 tablet by 1 tablet by 00 Take 1 mouth every mouth every tablet by day day mouth every day hyoscyamine hyoscyamine No hyoscyamin [facility] 0.125 mg 0.125 mg 2-17 e 0.125 mg M edical sublingual sublingual 00:00: sublingual tablet tablet [address] 1 tablet tablet tablet every day every day every day by by by sublingual sublingual sublingual route as route as route as needed for needed for needed for 90 days. 90 days. 90 days. hyoscyamine hyoscyamine 2019-0 No hyoscyamin [facility] 0.125 mg 0.125 mg 2-17 e 0.125 mg M edical sublingual sublingual 00:00: sublingual tablet tablet [address] 1 tablet tablet tablet every day every day every day by by by sublingual sublingual sublingual route as route as route as needed for needed for needed for 90 days. 90 days. 90 days. potassium potassium 2018-11 No potassium [facility] chloride ER chloride ER 2-02 chloride Medical 20 mEq 20 mEq 00:00: ER 20 mEq tablet,exte tablet,exte 00 tablet,ext nded nded ended release release release TAKE 1 TAKE 1 TAKE 1 TABLET BY TABLET BY TABLET BY MOUTH 1 MOUTH 1 MOUTH 1 TIME PER TIME PER TIME PER DAY FOR 30 DAY FOR 30 DAY FOR 30 DAYS DAYS DAYS NEEDED. NEEDED. NEEDED. TAKE WITH TAKE WITH TAKE WITH LASIX. LASIX. LASIX. potassium potassium 2018-11 No potassium [facility] chloride ER chloride ER 2-02 chloride Medical 20 mEq 20 mEq 00:00: ER 20 mEq tablet,exte tablet,exte 00 tablet,ext nded nded ended release release release TAKE 1 TAKE 1 TAKE 1 TABLET BY TABLET BY TABLET BY MOUTH 1 MOUTH 1 MOUTH 1 TIME PER TIME PER TIME PER DAY FOR 30 DAY FOR 30 DAY FOR 30 DAYS DAYS DAYS NEEDED. NEEDED. NEEDED. TAKE WITH TAKE WITH TAKE WITH LASIX. LASIX. LASIX. aliskiren aliskiren No aliskiren [place] 150 mg 150 mg 150 mg da tablet tablet tablet Medical Group atenolol 50 atenolol 50 No atenolol [place] mg tablet mg tablet 50 mg da tablet Medical Group atorvastati atorvastati No atorvastat [place] n 40 mg n 40 mg in 40 mg da tablet tablet tablet Medical Group bromfenac bromfenac No bromfenac [place] 0.09 % eye 0.09 % eye 0.09 % eye da drops drops drops Medical Group bumetanide bumetanide No bumetanide [place] 1 mg tablet 1 mg tablet 1 mg d a TAKE 1 TAKE 1 tablet Medical TABLET BY TABLET BY TAKE 1 Jeremy up MOUTH EVERY MOUTH EVERY TABLET BY DAY DAY MOUTH DIRECTED DIRECTED EVERY DAY FOR 30 FOR 30 DAYS. DAYS. DIRECTED FOR 30 DAYS. colesevelam colesevelam No colesevela [place] 625 mg 625 mg m 625 mg da tablet tablet tablet Medical Group desvenlafax desvenlafax No desvenlafa [place] ine ine xine da succinate succinate succinate Medical ER 100 mg ER 100 mg ER 100 mg Group tablet,exte tablet,exte tablet,ext nded nded ended release 24 release 24 release 24 hr hr hr dicyclomine dicyclomine No dicyclomin [place] 20 mg 20 mg e 20 mg da tablet TAKE tablet TAKE tablet Medical 1 TABLET BY 1 TABLET BY TAKE 1 Group MOUTH TWO MOUTH TWO TABLET BY TIMES A DAY TIMES A DAY MOUTH TWO TIMES A DAY ergocalcife ergocalcife No ergocalcif [place] rol rol tj da (vitamin (vitamin (vitamin Med ical D2) 1,250 D2) 1,250 D2) 1,250 Group mcg (50,000 mcg (50,000 mcg unit) unit) (50,000 capsule capsule unit) capsule eszopiclone eszopiclone No eszopiclon [place] 2 mg tablet 2 mg tablet e 2 mg da tablet Medical Group fenofibrate fenofibrate No fenofibrat [place] nanocrystal nanocrystal e d a lized 145 lized 145 nanocrysta Medical mg tablet mg tablet llized 145 Group mg tablet hydrochloro hydrochloro No hydrochlor [place] thiazide 25 thiazide 25 othiazide da mg tablet mg tablet 25 mg Medi isaac tablet Group hydrocortis hydrocortis No hydrocorti [place] one-acetic one-acetic sone-aceti da acid 1 %-2 acid 1 %-2 c acid 1 Medical % ear drops % ear drops %-2 % ear Group INSTILL 4 INSTILL 4 drops DROPS INTO DROPS INTO INSTILL 4 AFFECTED AFFECTED DROPS INTO EAR(S) BY EAR(S) BY AFFECTED OTIC ROUTE OTIC ROUTE EAR(S) BY 4 TIMES PER 4 TIMES PER OTIC ROUTE DAY FOR 2 DAY FOR 2 4 TIMES WEEKS WEEKS PER DAY FOR 2 WEEKS hyoscyamine hyoscyamine No hyoscyamin [place] 0.125 mg 0.125 mg e 0.125 mg d a sublingual sublingual sublingual Medical tablet tablet tablet Group ketoconazol ketoconazol No ketoconazo [place] e 2 % e 2 % le 2 % da shampoo shampoo shampoo Medica l Group levothyroxi levothyroxi No levothyrox [place] ne 137 mcg ne 137 mcg ine 137 da tablet tablet mcg tablet Medic al Group lorazepam lorazepam No lorazepam [place] 0.5 mg 0.5 mg 0.5 mg da tablet tablet tablet Medical Group omeprazole omeprazole No omeprazole [place] 40 mg 40 mg 40 mg da capsule,del capsule,del capsule,de Medical ayed ayed layed Group release release release phentermine phentermine No 1 Q1D phentermin [place] 37.5 mg 37.5 mg e 37.5 mg da tablet Take tablet Take tablet Medical 1 tablet 1 tablet Take 1 Group every day every day tablet by oral by oral every day route. route. by oral route. ProAir HFA ProAir HFA No ProAir HFA [place] 90 90 90 da mcg/actuati mcg/actuati mcg/actuat Medical on aerosol on aerosol ion Jeremy up inhaler inhaler aerosol inhaler xarelto 20 xarelto 20 No xarelto 20 [facility] mg tabs mg tabs mg tabs Medica l Symbicort Symbicort No Symbicort [place] 160 mcg-4.5 160 mcg-4.5 160 d a mcg/actuati mcg/actuati mcg-4.5 Medical on HFA on HFA mcg/actuat Group aerosol aerosol ion HFA inhaler inhaler aerosol inhaler Xarelto 20 Xarelto 20 No Xarelto 20 [facility] mg tablet mg tablet mg tablet Medical Take 1 Take 1 Take 1 tablet tablet tablet every day every day every day by oral by oral by oral route for route for route for 90 days. 90 days. 90 days. trazodone trazodone No trazodone [place] 300 mg 300 mg 300 mg da tablet tablet tablet Medical Group zolpidem 10 zolpidem 10 No zolpidem [facility] mg tablet mg tablet 10 mg Medi isaac tablet verapamil verapamil No verapamil [place] ER (SR) 240 ER (SR) 240 ER (SR) da mg mg 240 mg Medical tablet,exte tablet,exte tablet,ext Group nded nded ended release release release aliskiren aliskiren No aliskiren [facility] 150 mg tabs 150 mg tabs 150 mg Medical tabs Xarelto 20 Xarelto 20 No Xarelto 20 [facility] tablet mg tablet mg tablet [facility]iren al[facility] No [facility] 150 mg 150 mg 150 mg Medical tablet tablet tablet amoxicillin amoxicillin No amoxicilli [facility] 875 mg tabs 875 mg tabs n 875 mg Medical tabs atenolol 50 atenolol 50 No atenolol [facility] mg tabs mg tabs 50 mg tabs Med ical atenolol 50 atenolol 50 No atenolol [facility] mg tablet mg tablet 50 mg Medi isaac Take 1 Take 1 tablet tablet by tablet by Take 1 mouth mouth tablet by daily. daily. mouth daily. atorvastati atorvastati No atorvastat [facility] n 40 mg n 40 mg in 40 mg Medic al tablet Take tablet Take tablet 1 tablet 1 tablet Take 1 every day every day tablet by oral by oral every day route for route for by oral 90 days. 90 days. route for 90 days. atorvastati atorvastati No atorvastat [facility] n calcium n calcium in calcium Medical 40 mg tabs 40 mg tabs 40 mg tabs BD Luer-John BD Luer-John No BD P rivia Syringe 3 Syringe 3 Luer-John M edical mL 21 gauge mL 21 gauge Syringe 3 x 1 1/2" x 1 1/2" mL 21 USE USE gauge x 1 DIRECTED. DIRECTED. 11/16" USE DIRECTED. BD Regular BD Regular No BD Regular [facility] [place] 18 gauge x 1" gauge x 1" gauge x 1" USE USE USE DIRECTED. DIRECTED. DIRECTED. bromfenac bromfenac No bromfenac [facility] 0.09 % eye 0.09 % eye 0.09 % eye Medical drops drops drops bumetanide bumetanide No bumetanide [facility] 1 mg tablet 1 mg tablet 1 mg M edical tablet cefpodoxime cefpodoxime No cefpodoxim [facility] 200 mg 200 mg e 200 mg Medical tablet tablet tablet ciprofloxac ciprofloxac No ciprofloxa [facility] in 0.3 % in 0.3 % wilber 0.3 % Me dical eye drops eye drops eye drops colesevelam colesevelam No colesevela [facility] 625 mg 625 mg m 625 mg Medical tablet Take tablet Take tablet 3 tablets 3 tablets Take 3 twice a day twice a day tablets by oral by oral twice a route for route for day by 90 days. 90 days. oral route for 90 days. colesevelam colesevelam No colesevela [facility] hydrochlori hydrochlori m M edical de 625 mg de 625 mg hydrochlor tabs tabs leslie 625 mg tabs desvenlafax desvenlafax No desvenlafa [facility] ine er 100 ine er 100 xine er Medical mg tb24 mg tb24 100 mg tb24 desvenlafax desvenlafax No desvenlafa [facility] ine ine xine Medical succinate succinate succinate ER 100 mg ER 100 mg ER 100 mg tablet,exte tablet,exte tablet,ext nded nded ended release 24 release 24 release 24 hr TAKE 1 hr TAKE 1 hr TAKE 1 TABLET BY TABLET BY TABLET BY MOUTH EVERY MOUTH EVERY MOUTH DAY FOR 90 DAY FOR 90 EVERY DAY DAYS. DAYS. FOR 90 DAYS. dicyclomine dicyclomine No dicyclomin [facility] 20 mg 20 mg e 20 mg Medical tablet TAKE tablet TAKE tablet 1 TABLET BY 1 TABLET BY TAKE 1 MOUTH TWO MOUTH TWO TABLET BY TIMES A DAY TIMES A DAY MOUTH TWO TIMES A DAY dicyclomine dicyclomine No dicyclomin [facility] hydrochlori hydrochlori e M edical de 20 mg de 20 mg hydrochlor tabs tabs leslie 20 mg tabs eletriptan eletriptan No eletriptan [facility] 40 mg 40 mg 40 mg Medical tablet Take tablet Take tablet 1 tablet 1 tablet Take 1 every day every day tablet by oral by oral every day route for route for by oral 90 days. 90 days. route for 90 days. enoxaparin enoxaparin No enoxaparin [facility] 150 mg/mL 150 mg/mL 150 mg/mL Medical subcutaneou subcutaneou subcutaneo s syringe s syringe us syringe ergocalcife ergocalcife No ergocalcif [facility] rol rol tj Medical (vitamin (vitamin (vitamin D2) 1,250 D2) 1,250 D2) 1,250 mcg (50,000 mcg (50,000 mcg unit) unit) (50,000 capsule capsule unit) capsule eszopiclone eszopiclone No eszopiclon [facility] 2 mg tablet 2 mg tablet e 2 mg Medical tablet fenofibrate fenofibrate No fenofibrat [facility] 145 mg tabs 145 mg tabs e 145 mg Medical tabs fenofibrate fenofibrate No fenofibrat [facility] nanocrystal nanocrystal e M edical lized 145 lized 145 nanocrysta mg tablet mg tablet llized 145 Take 1 Take 1 mg tablet tablet tablet Take 1 every day every day tablet by oral by oral every day route for route for by oral 90 days. 90 days. route for 90 days. furosemide furosemide No furosemide [facility] 40 mg tabs 40 mg tabs 40 mg tabs Medical hc/acet hc/acet No hc/acet [facility] acid carrillo acid carrillo acid carrillo Med ical otic otic otic hydrochloro hydrochloro No hydrochlor [facility] thiazide 25 thiazide 25 othiazide Medical mg tabs mg tabs 25 mg tabs hydrochloro hydrochloro No hydrochlor [facility] thiazide 25 thiazide 25 othiazide Medical mg tablet mg tablet 25 mg Take 1 Take 1 tablet tablet by tablet by Take 1 mouth mouth tablet by everyday. everyday. mouth everyday. hydrocortis hydrocortis No hydrocorti [facility] one 2.5 % one 2.5 % sone 2.5 % Medical topical topical topical cream cream cream hydrocortis hydrocortis No hydrocorti [facility] one-acetic one-acetic sone-aceti Medical acid 1 %-2 acid 1 %-2 c acid 1 % ear drops % ear drops %-2 % ear Instill 3 Instill 3 drops drops every drops every Instill 3 day by otic day by otic drops route as route as every day needed for needed for by otic 30 days. 30 days. route as needed for 30 days. ketoconazol ketoconazol No ketoconazo [facility] e 2 % e 2 % le 2 % Medical shampoo shampoo shampoo ketoconazol ketoconazol No ketoconazo [facility] e 2 % e 2 % le 2 % Medical topical topical topical cream cream cream levothyroxi levothyroxi No levothyrox [facility] ne 137 mcg ne 137 mcg ine 137 Medical tablet tablet mcg tablet lorazepam lorazepam No lorazepam [facility] 0.5 mg 0.5 mg 0.5 mg Medical tablet tablet tablet meclizine meclizine No meclizine [facility] 25 mg 25 mg 25 mg Medical tablet Take tablet Take tablet 1 tablet 3 1 tablet 3 Take 1 times a day times a day tablet 3 by oral by oral times a route. route. day by oral route. methylpredn methylpredn No methylpred [facility] isolone 4 isolone 4 nisolone 4 Medical mg tablets mg tablets mg tablets in a dose in a dose in a dose pack pack pack moxifloxaci moxifloxaci No moxifloxac [facility] n 0.5 % eye n 0.5 % eye in 0.5 % Medical drops drops eye drops neomycin neomycin No neomycin Cha via 3.5 3.5 3.5 Medical mg/g-polymy mg/g-polymy mg/g-polym devyn B devyn B yxin B 10,000 10,000 10,000 unit/g-dexa unit/g-dexa unit/g-dex meth 0.1 % meth 0.1 % ameth 0.1 eye oint eye oint % eye oint omeprazole omeprazole No omeprazole [facility] 40 mg cpdr 40 mg cpdr 40 mg cpdr Medical omeprazole omeprazole No omeprazole [facility] 40 mg 40 mg 40 mg Medical capsule,del capsule,del capsule,de ayed ayed layed release release release TAKE 1 TAKE 1 TAKE 1 CAPSULE BY CAPSULE BY CAPSULE BY MOUTH EVERY MOUTH EVERY MOUTH DAY DAY EVERY DAY pantoprazol pantoprazol No pantoprazo [facility] e 40 mg e 40 mg le 40 mg Medic al tablet,antonio tablet,antonio tablet,del yed release yed release ayed release prednisolon prednisolon No prednisolo [facility] e acetate 1 e acetate 1 ne acetate Medical % eye % eye 1 % eye drops,suspe drops,suspe drops,susp nsion nsion ension prednisone prednisone No prednisone [facility] 10 mg 10 mg 10 mg Medical tablets in tablets in tablets in a dose pack a dose pack a dose pack ProAir HFA ProAir HFA No ProAir HFA [facility] 90 90 90 Medical mcg/actuati mcg/actuati mcg/actuat on aerosol on aerosol ion inhaler inhaler aerosol Inhale 1 Inhale 1 inhaler inhalation inhalation Inhale 1 twice a day twice a day inhalation by by twice a inhalation inhalation day by route as route as inhalation needed for needed for route as 30 days. 30 days. needed for 30 days. rosuvastati rosuvastati No rosuvastat [facility] n 20 mg n 20 mg in 20 mg Medic al tablet tablet tablet Suprep Suprep No Suprep [facility] Bowel Prep Bowel Prep Bowel Prep Medical Kit 17.5 Kit 17.5 Kit 17.5 gram-3.13 gram-3.13 gram-3.13 gram-1.6 gram-1.6 gram-1.6 gram oral gram oral gram oral solution solution solution Symbicort Symbicort No Symbicort [facility] 160 mcg-4.5 160 mcg-4.5 160 M edical mcg/actuati mcg/actuati mcg-4.5 on HFA on HFA mcg/actuat aerosol aerosol ion HFA inhaler inhaler aerosol Inhale 1 Inhale 1 inhaler puff every puff every Inhale 1 day by day by puff every inhalation inhalation day by route as route as inhalation directed directed route as for 90 for 90 directed days. days. for 90 days. Synthroid Synthroid No Synthroid [facility] 125 mcg 125 mcg 125 mcg Medica l tablet tablet tablet tramadol 50 tramadol 50 No tramadol [facility] mg tablet mg tablet 50 mg Medi isaac TAKE 1 TAKE 1 tablet TABLET BY TABLET BY TAKE 1 MOUTH EVERY MOUTH EVERY TABLET BY FOUR HOURS FOUR HOURS MOUTH NEEDED NEEDED EVERY FOUR FOR PAIN FOR PAIN HOURS NEEDED FOR PAIN tramadol tramadol No tramadol Cha via hcl 50 mg hcl 50 mg hcl 50 mg Medical tabs tabs tabs trazodone trazodone No trazodone [facility] 100 mg 100 mg 100 mg Medical tablet take tablet take tablet 3.5 tablets 3.5 tablets take 3.5 by mouth at by mouth at tablets by bedtime bedtime mouth at bedtime trazodone trazodone No trazodone [facility] 300 mg 300 mg 300 mg Medical tablet tablet tablet trazodone trazodone No trazodone [facility] hydrochlori hydrochlori hydrochlor Medical de 100 mg de 100 mg leslie 100 mg tabs tabs tabs triamcinolo triamcinolo No triamcinol [facility] ne ne one Medical acetonide acetonide acetonide 0.1 % 0.1 % 0.1 % topical topical topical cream APPLY cream APPLY cream A THIN A THIN APPLY A LAYER TO LAYER TO THIN LAYER THE THE TO THE AFFECTED AFFECTED AFFECTED AREA(S) BY AREA(S) BY AREA(S) BY TOPICAL TOPICAL TOPICAL ROUTE 2 ROUTE 2 ROUTE 2 TIMES PER TIMES PER TIMES PER DAY DAY DAY vancomycin vancomycin No vancomycin [facility] 125 mg 125 mg 125 mg Medical capsule capsule capsule verapamil verapamil No verapamil [facility] ER (SR) 240 ER (SR) 240 ER (SR) Medical mg mg 240 mg tablet,exte tablet,exte tablet,ext nded nded ended release release release Take 1 Take 1 Take 1 tablet tablet tablet every day every day every day by oral by oral by oral route for route for route for 90 days. 90 days. 90 days. verapamil verapamil No verapamil [facility] hcl er 240 hcl er 240 hcl er 240 Medical mg tbcr mg tbcr mg tbcr xarelto 20 xarelto 20 No xarelto 20 [facility] mg tabs mg tabs mg tabs Medica l Xarelto 20 Xarelto 20 No Xarelto 20 [facility] mg tablet mg tablet mg tablet Medical Take 1 Take 1 Take 1 tablet tablet tablet every day every day every day by oral by oral by oral route for route for route for 90 days. 90 days. 90 days. zolpidem 10 zolpidem 10 No zolpidem [facility] mg tablet mg tablet 10 mg Medi isaac tablet aliskiren aliskiren No aliskiren [facility] 150 mg tabs 150 mg tabs 150 mg Medical tabs aliskiren aliskiren No aliskiren [facility] 150 mg 150 mg 150 mg Medical tablet tablet tablet amoxicillin amoxicillin No amoxicilli [facility] 875 mg tabs 875 mg tabs n 875 mg Medical tabs atenolol 50 atenolol 50 No atenolol [facility] mg tabs mg tabs 50 mg tabs Med ical atenolol 50 atenolol 50 No atenolol [facility] mg tablet mg tablet 50 mg Medi isaac Take 1 Take 1 tablet tablet by tablet by Take 1 mouth mouth tablet by daily. daily. mouth daily. atorvastati atorvastati No atorvastat [facility] n 40 mg n 40 mg in 40 mg Medic al tablet Take tablet Take tablet 1 tablet 1 tablet Take 1 every day every day tablet by oral by oral every day route for route for by oral 90 days. 90 days. route for 90 days. atorvastati atorvastati No atorvastat [facility] n calcium n calcium in calcium Medical 40 mg tabs 40 mg tabs 40 mg tabs BD Luer-John BD Luer-John No BD P [facility]ia Syringe 3 Syringe 3 Luer-John M edical mL 21 gauge mL 21 gauge Syringe 3 x 1 1/2" x 1 1/2" mL 21 USE USE gauge x 1 DIRECTED. DIRECTED. 11/16" USE DIRECTED. BD Regular BD Regular No BD Regular [facility] [place] 18 [place] 18 [place] 18 gauge x 1" gauge x 1" gauge x 1" USE USE USE DIRECTED. DIRECTED. DIRECTED. bromfenac bromfenac No bromfenac [facility] 0.09 % eye 0.09 % eye 0.09 % eye Medical drops drops drops bumetanide bumetanide No bumetanide [facility] 1 mg tablet 1 mg tablet 1 mg M edical tablet cefpodoxime cefpodoxime No cefpodoxim [facility] 200 mg 200 mg e 200 mg Medical tablet tablet tablet ciprofloxac ciprofloxac No ciprofloxa [facility] in 0.3 % in 0.3 % wilber 0.3 % Me dical eye drops eye drops eye drops colesevelam colesevelam No colesevela [facility] 625 mg 625 mg m 625 mg Medical tablet Take tablet Take tablet 3 tablets 3 tablets Take 3 twice a day twice a day tablets by oral by oral twice a route for route for day by 90 days. 90 days. oral route for 90 days. colesevelam colesevelam No colesevela [facility] hydrochlori hydrochlori m M edical de 625 mg de 625 mg hydrochlor tabs tabs leslie 625 mg tabs desvenlafax desvenlafax No desvenlafa [facility] ine er 100 ine er 100 xine er Medical mg tb24 mg tb24 100 mg tb24 desvenlafax desvenlafax No desvenlafa [facility] ine ine xine Medical succinate succinate succinate ER 100 mg ER 100 mg ER 100 mg tablet,exte tablet,exte tablet,ext nded nded ended release 24 release 24 release 24 hr TAKE 1 hr TAKE 1 hr TAKE 1 TABLET BY TABLET BY TABLET BY MOUTH EVERY MOUTH EVERY MOUTH DAY FOR 90 DAY FOR 90 EVERY DAY DAYS. DAYS. FOR 90 DAYS. dicyclomine dicyclomine No dicyclomin [facility] 20 mg 20 mg e 20 mg Medical tablet TAKE tablet TAKE tablet 1 TABLET BY 1 TABLET BY TAKE 1 MOUTH TWO MOUTH TWO TABLET BY TIMES A DAY TIMES A DAY MOUTH TWO TIMES A DAY dicyclomine dicyclomine No dicyclomin [facility] hydrochlori hydrochlori e M edical de 20 mg de 20 mg hydrochlor tabs tabs leslie 20 mg tabs eletriptan eletriptan No eletriptan [facility] 40 mg 40 mg 40 mg Medical tablet Take tablet Take tablet 1 tablet 1 tablet Take 1 every day every day tablet by oral by oral every day route for route for by oral 90 days. 90 days. route for 90 days. enoxaparin enoxaparin No enoxaparin [facility] 150 mg/mL 150 mg/mL 150 mg/mL Medical subcutaneou subcutaneou subcutaneo s syringe s syringe us syringe ergocalcife ergocalcife No ergocalcif [facility] rol rol tj Medical (vitamin (vitamin (vitamin D2) 1,250 D2) 1,250 D2) 1,250 mcg (50,000 mcg (50,000 mcg unit) unit) (50,000 capsule capsule unit) capsule eszopiclone eszopiclone No eszopiclon [facility] 2 mg tablet 2 mg tablet e 2 mg Medical tablet fenofibrate fenofibrate No fenofibrat [facility] 145 mg tabs 145 mg tabs e 145 mg Medical tabs fenofibrate fenofibrate No fenofibrat [facility] nanocrystal nanocrystal e M edical lized 145 lized 145 nanocrysta mg tablet mg tablet llized 145 Take 1 Take 1 mg tablet tablet tablet Take 1 every day every day tablet by oral by oral every day route for route for by oral 90 days. 90 days. route for 90 days. furosemide furosemide No furosemide [facility] 40 mg tabs 40 mg tabs 40 mg tabs Medical hc/acet hc/acet No hc/acet [facility] acid carrillo acid carrillo acid carrillo Med ical otic otic otic hydrochloro hydrochloro No hydrochlor [facility] thiazide 25 thiazide 25 othiazide Medical mg tabs mg tabs 25 mg tabs hydrochloro hydrochloro No hydrochlor [facility] thiazide 25 thiazide 25 othiazide Medical mg tablet mg tablet 25 mg Take 1 Take 1 tablet tablet by tablet by Take 1 mouth mouth tablet by everyday. everyday. mouth everyday. hydrocortis hydrocortis No hydrocorti [facility] one 2.5 % one 2.5 % sone 2.5 % Medical topical topical topical cream cream cream hydrocortis hydrocortis No hydrocorti [facility] one-acetic one-acetic sone-aceti Medical acid 1 %-2 acid 1 %-2 c acid 1 % ear drops % ear drops %-2 % ear Instill 3 Instill 3 drops drops every drops every Instill 3 day by otic day by otic drops route as route as every day needed for needed for by otic 30 days. 30 days. route as needed for 30 days. ketoconazol ketoconazol No ketoconazo [facility] e 2 % e 2 % le 2 % Medical shampoo shampoo shampoo ketoconazol ketoconazol No ketoconazo [facility] e 2 % e 2 % le 2 % Medical topical topical topical cream cream cream levothyroxi levothyroxi No levothyrox [facility] ne 137 mcg ne 137 mcg ine 137 Medical tablet tablet mcg tablet lorazepam lorazepam No lorazepam [facility] 0.5 mg 0.5 mg 0.5 mg Medical tablet tablet tablet meclizine meclizine No meclizine [facility] 25 mg 25 mg 25 mg Medical tablet Take tablet Take tablet 1 tablet 3 1 tablet 3 Take 1 times a day times a day tablet 3 by oral by oral times a route. route. day by oral route. methylpredn methylpredn No methylpred [facility] isolone 4 isolone 4 nisolone 4 Medical mg tablets mg tablets mg tablets in a dose in a dose in a dose pack pack pack moxifloxaci moxifloxaci No moxifloxac [facility] n 0.5 % eye n 0.5 % eye in 0.5 % Medical drops drops eye drops neomycin neomycin No neomycin Cha via 3.5 3.5 3.5 Medical mg/g-polymy mg/g-polymy mg/g-polym devyn B devyn B yxin B 10,000 10,000 10,000 unit/g-dexa unit/g-dexa unit/g-dex meth 0.1 % meth 0.1 % ameth 0.1 eye oint eye oint % eye oint omeprazole omeprazole No omeprazole [facility] 40 mg cpdr 40 mg cpdr 40 mg cpdr Medical omeprazole omeprazole No omeprazole [facility] 40 mg 40 mg 40 mg Medical capsule,del capsule,del capsule,de ayed ayed layed release release release TAKE 1 TAKE 1 TAKE 1 CAPSULE BY CAPSULE BY CAPSULE BY MOUTH EVERY MOUTH EVERY MOUTH DAY DAY EVERY DAY pantoprazol pantoprazol No pantoprazo [facility] e 40 mg e 40 mg le 40 mg Medic al tablet,antonio tablet,antonio tablet,del yed release yed release ayed release prednisolon prednisolon No prednisolo [facility] e acetate 1 e acetate 1 ne acetate Medical % eye % eye 1 % eye drops,suspe drops,suspe drops,susp nsion nsion ension prednisone prednisone No prednisone [facility] 10 mg 10 mg 10 mg Medical tablets in tablets in tablets in a dose pack a dose pack a dose pack ProAir HFA ProAir HFA No ProAir HFA [facility] 90 Medical mcg/actuati mcg/actuati mcg/actuat on aerosol on aerosol ion inhaler inhaler aerosol Inhale 1 Inhale 1 inhaler inhalation inhalation Inhale 1 twice a day twice a day inhalation by by twice a inhalation inhalation day by route as route as inhalation needed for needed for route as 30 days. 30 days. needed for 30 days. rosuvastati rosuvastati No rosuvastat [facility] n 20 mg n 20 mg in 20 mg Medic al tablet tablet tablet Suprep Suprep No Suprep [facility] Bowel Prep Bowel Prep Bowel Prep Medical Kit 17.5 Kit 17.5 Kit 17.5 gram-3.13 gram-3.13 gram-3.13 gram-1.6 gram-1.6 gram-1.6 gram oral gram oral gram oral solution solution solution Symbicort Symbicort No Symbicort [facility] 160 mcg-4.5 160 mcg-4.5 160 M edical mcg/actuati mcg/actuati mcg-4.5 on HFA on HFA mcg/actuat aerosol aerosol ion HFA inhaler inhaler aerosol Inhale 1 Inhale 1 inhaler puff every puff every Inhale 1 day by day by puff every inhalation inhalation day by route as route as inhalation directed directed route as for 90 for 90 directed days. days. for 90 days. Synthroid Synthroid No Synthroid [facility] 125 mcg 125 mcg 125 mcg Medica l tablet tablet tablet tramadol 50 tramadol 50 No tramadol [facility] mg tablet mg tablet 50 mg Medi isaac TAKE 1 TAKE 1 tablet TABLET BY TABLET BY TAKE 1 MOUTH EVERY MOUTH EVERY TABLET BY FOUR HOURS FOUR HOURS MOUTH NEEDED NEEDED EVERY FOUR FOR PAIN FOR PAIN HOURS NEEDED FOR PAIN tramadol tramadol No tramadol Cha via hcl 50 mg hcl 50 mg hcl 50 mg Medical tabs tabs tabs trazodone trazodone No trazodone [facility] 100 mg 100 mg 100 mg Medical tablet take tablet take tablet 3.5 tablets 3.5 tablets take 3.5 by mouth at by mouth at tablets by bedtime bedtime mouth at bedtime trazodone trazodone No trazodone [facility] 300 mg 300 mg 300 mg Medical tablet tablet tablet trazodone trazodone No trazodone [facility] hydrochlori hydrochlori hydrochlor Medical de 100 mg de 100 mg leslie 100 mg tabs tabs tabs triamcinolo triamcinolo No triamcinol [facility] ne ne one Medical acetonide acetonide acetonide 0.1 % 0.1 % 0.1 % topical topical topical cream APPLY cream APPLY cream A THIN A THIN APPLY A LAYER TO LAYER TO THIN LAYER THE THE TO THE AFFECTED AFFECTED AFFECTED AREA(S) BY AREA(S) BY AREA(S) BY TOPICAL TOPICAL TOPICAL ROUTE 2 ROUTE 2 ROUTE 2 TIMES PER TIMES PER TIMES PER DAY DAY DAY vancomycin vancomycin No vancomycin [facility] 125 mg 125 mg 125 mg Medical capsule capsule capsule verapamil verapamil No verapamil [facility] ER (SR) 240 ER (SR) 240 ER (SR) Medical mg mg 240 mg tablet,exte tablet,exte tablet,ext nded nded ended release release release Take 1 Take 1 Take 1 tablet tablet tablet every day every day every day by oral by oral by oral route for route for route for 90 days. 90 days. 90 days. verapamil verapamil No verapamil [facility] hcl er 240 hcl er 240 hcl er 240 Medical mg tbcr mg tbcr mg tbcr Immunizations Ordered Filled Immunization Date Status Comments [facility] e Immunization Name Name [id number] All Forms 2009-10-15 Completed [facility] 00:00:00 [place] MD Higgins [facility] Influenza (IM) 2009-08-15 Completed [facility] Preservative Free 00:00:00 [place] [facility] Pneumococcal 2007-08-15 Completed [facility] [place] [facility] Vital Signs Vital Name Observation Time Observation Value Comments Source BP Diastolic 2021-07-01 00:00:00 72 mm[Hg] [facility] Height 2021-07-01 00:00:00 69 [in_i] [facility] BMI (Body Mass 2021-07-01 00:00:00 47.3 kg/m2 [facility] BP Systolic 2021-07-01 00:00:00 138 mm[Hg] [facility] Body Weight 2021-07-01 00:00:00 320.1 [lb_av] [facility] Height 2021-04-16 10:21:00 175.26 CM Weight 2021-04-16 10:21:00 136.07 KG WEIGHT 2021-02-23 07:41:46 130.7 kg WEIGHT 2021-02-10 16:10:56 135.4 kg HEIGHT 2020-10-02 14:26:08 175 cm WEIGHT 2020-10-02 14:26:08 134.4 kg WEIGHT 2020-09-26 03:42:00 133.4 kg WEIGHT 2020-09-19 11:06:08 133.3 kg WEIGHT 2020-09-11 07:12:00 141.7 kg HEIGHT 2020-09-09 05:24:00 175 cm WEIGHT 2020-09-02 12:35:41 141.2 kg HEIGHT 2020-08-26 15:16:24 170.8 cm WEIGHT 2020-08-26 15:16:24 139.8 kg BP Diastolic 2020-01-04 00:00:00 75 mm[Hg] [facility] Height 2020-01-04 00:00:00 69 [in_i] [facility] BMI (Body Mass 2020-01-04 00:00:00 43.5 kg/m2 [facility] BP Systolic 2020-01-04 00:00:00 132 mm[Hg] [facility] Body Weight 2020-01-04 00:00:00 294.4 [lb_av] [facility] Height/Length 2021-12-02 09:18:21 175.26 cm Measured Weight Dosing 2021-12-02 09:18:21 134.716 kg Systolic blood 2022-06-18 18:26:26 149 mm[Hg] [facility] Diastolic blood 2022-06-18 18:26:26 94 mm[Hg] [facility] [place] [facility] Heart rate 2022-06-18 18:26:26 63 /min [facility] [place] [facility] Body temperature 2022-06-18 18:26:26 37 [facility] Respiratory rate 2022-06-18 18:26:26 16 /min [facility] Body weight 2022-06-18 18:26:26 139.3 kg [facility] MD [facility] BMI 2022-06-18 18:26:26 45.49 kg/m2 [facility] MD [facility] Oxygen saturation in 2022-06-18 18:26:26 95 /min [facility] Arterial blood by Ying thompson Pulse oximetry [facility] Procedures Procedure Date / Time Performing Clinician Source Performed CT CHEST W CONTRAST 2022-06-18 16:35:[address] [facility] POC CREATININE 2022-06-18 15:52:[address] [facility] [place] [place] US HEAD NECK SOFT TISSUE 2022-06-18 15:27:38 [facility] 2022-06-18 13:56:00 Amena Logan [facility] HORMONE [facility] FREE THYROXINE 2022-06-18 13:56:[address] [facility] [place] [place] THYROGLOBULIN ANTIBODY 2022-06-18 13:56:00 Amena Logan [facility] REPLACE LT LENS SYNTH 2021-04-21 00:00:00 [facility] TYMPANOMETRY 2020-01-04 00:00:00 [facility] Procedure on Gallbladder [facility] Card[facility] Procedure [facility] Total [facility]ide[facility] Bilateral Inguinal [facility]ar[facility] Plan of Care Planned Activity Planned Date Details Comments Source Future Scheduled 2022-12-16 COVID-19 Vaccination [facility] [place] Test 08:57:02 (#1) [code = COVID-19 MD [facility] (#1)] Center Future Scheduled 2022-11-11 COVID-19 VACCINE (#1) [facility] Test 09:37:07 [code = COVID-19 VACCINE (#1)] Future Scheduled 2022-11-11 65+ [facility]AL [facility] 09:37:07 VACCINE (1 - PCV) [code = 65+ PNEUMOCOCCAL VACCINE (1 - PCV)] Future Scheduled 2022-11-11 Hepatitis C screening [facility] Test 09:37:07 (procedure) [code = 244205990] Future Scheduled 2022-11-11 COLONOSCOPY SCREENING [facility] Test 09:37:07 [code = COLONOSCOPY SCREENING] Future Scheduled 2022-11-11 SHINGLES VACCINES (1 [facility] 09:37:07 of 2) [code = SHINGLES VACCINES (1 of 2)] Future Scheduled 2022-11-11 [facility]FLUENZA VACCINE [facility] 09:37:07 [code = INFLUENZA VACCINE] Encounters Start End Encounter Admission Attending Care Care Encounter Source Date/Time Date/Time Type Type Clinicians Facility Department ID 2022-07-17 [facility] [id number] 07:57:13 [id number] [facility] 2020-12-30 Outpatient SYSTEM, LEVI SIMS [id number] 18:41:03 PROVIDER Chema o horacio 2020-09-09 Inpatient SHANAFERELEVI Telles MDA [id number] 14:37:58 CHRIST leonard 2020-09-09 Inpatient ZAFEREO, LEVI SIMS [id number] 14:35:04 CHRIST leonard 2020-09-08 Emergency ER LEVI VELÁSQUEZ [id number] 23:51:51 Hospital Chema o n 2020-09-05 Outpatient SYSTEM, LEVI SIMS [id number] 16:55:13 PROVIDER Chema leonard 2020-08-28 [facility] [id number] 15:31:42 CHRIST leonard 2020-07-25 Outpatient [facility] [id number] 14:00:29 PROVIDER Chema leonard 2022-11-22 2022-11-22 Orders Logan, 1.2.840.1 [id number] [facility] 00:00:00 00:00:00 Only Amena Doan 64576.1.1 ity of 3.412.2.7 [place] .3.209559 MD Rodriges8 [facility] 2022-11-18 2022-11-18 Documentat Valderrama, 1.2.840.1 [id number] Univers 00:00:00 00:00:00 ion Celica Natasha 92747.1.1 i ty of P 3.412.2.7 [place] .3.218576 .8 [facility] 2022-11-13 2022-11-13 Outpatient LOGAN, [facility] [id number] [place] 14:20:00 14:20:00 AMENA -[id number] [facility] 2022-10-16 2022-10-16 Orders Logan, 1.2.840.1 [id number] Univers 00:00:00 00:00:00 Only Amena Doan 35407.1.1 ity of 3.412.2.7 [place] .3.130789 MD Rodriges8 [facility] 2022-09-29 2022-09-29 Documentat Valderrama, 1.2.840.1 [id number] Univers 00:00:00 00:00:00 ion Celica Natasha 17318.1.1 i ty of P 3.412.2.7 [place] .3.376279 MD Rodriges8 [facility] 2022-07-17 2022-07-17 Outpatient REE SIMONS PISAbiel [id number] 07:57:00 11:38:00 [id number] [facility] 2022-06-18 2022-06-18 Outpatient EL LOGAN, MDA MDA [id number] 08:30:00 23:59:00 AMENA leonard 2022-06-18 2022-06-18 [facility] Logan, 1.2.840.1 [id number] Univers 08:30:00 23:59:00 Encounter Amena Doan 05056.1.1 ity of 3.412.2.7 [place] .3.927126 .8 [facility] 2022-06-18 2022-06-18 Office [place], 1.2.840.1 [id number] [facility] 14:00:00 14:45:06 Visit Génesis Green50.1.1 ity of 3.412.2.7 [place] .3.774591 MD Rodriges8 [facility] 2022-06-18 2022-06-18 Outpatient [facility], MDA MDA [id number] 13:11:25 14:45:06 GÉNESIS Chemaelise leonard 2022-06-18 2022-06-18 Ancillary Logan, 1.2.840.1 [id number] [facility] 11:10:00 12:35:00 Procedure Amena Doan 56855.1.1 ity of 3.412.2.7 [place] .3.693335 MD Rodriges8 [facility] 2022-06-18 2022-06-18 [facility] 1.2.840.1 [id number] [facility] 09:45:00 10:45:00 Procedure Amena Doan 42390.1.1 ity of 3.412.2.7 [place] .3.439053 MD Rodriges8 [facility] 2022-06-18 2022-06-18 Outpatient EL LOGAN, MDA MDA [id number] 10:32:33 10:32:33 AMENA leonard 2022-06-18 2022-06-18 Outpatient EL LOGAN, MDA MDA [id number] 09:10:14 09:10:14 AMENA leonard 2022-06-18 2022-06-18 Travel 1.2.840.1 1.2.118.766 [id number] [facility] 00:00:00 00:00:00 11177.1.1 350.1.13.41 ity of 3.412.2.7 [place].698 [place] .3.569616 084.8 .8 [facility] 2022-05-21 2022-05-21 Outpatient GC_WPSA_Awa PRIV PRIV [id number] [facility] 06:07:00 06:07:00 n_R [id number] Medica l 2022-05-21 2022-05-21 Ruba Kirk PRIV [place] - [facility] [id number] [facility] 00:00:00 00:00:00 MD Claude: [facility] Med [facility] [address] GC_WPSA_Ric [facility], [address], [place] [address] , Ph. 2022-05-21 2022-05-21 Outpatient Claude, Ruba PRIV PRIV [id number] 00:00:00 00:00:00 Kirk [id number] 2022-01-08 2022-01-08 Outpatient GC_WPSA_Awa PRIV PRIV [id number] [facility] 05:00:00 05:00:00 n_R [id number] Medica l 2021-12-31 2021-12-31 Outpatient GC_WPSA_Awa PRIV PRIV [id number] [facility] 03:39:00 03:39:00 n_R [id number] Medica l 2021-12-27 2021-12-27 Outpatient Yan_W MMG MMG [id number] [place] 02:53:00 02:53:00 021 [facility] 2021-12-16 2021-12-16 Outpatient Yan_W MMG MMG [id number] [place] 11:18:00 11:18:00 200 [facility] 2021-12-16 2021-12-16 Outpatient Yan_W MMG MMG [id number] [place] 11:18:00 11:18:00 201 [facility] 2021-12-09 2021-12-09 Outpatient Yan_W MMG MM [id number] 022 [place] 03:37:00 03:37:00 0125 [facility] 2021-12-03 2021-12-03 Outpatient GC_WPSA_Awa PRIV PRIV [id number] [facility] 03:59:00 03:59:00 n_R [id number] Medica l 2021-11-20 2021-11-20 Outpatient GC_WPSA_Awa PRIV PRIV [id number] [facility] 01:04:00 01:04:00 n_R [id number] Medica l 2021-11-20 2021-11-20 Ruba Kirk PRIV [facility] 00:00:00 00:00:00 MD Claude: Health - Med ical [id number] GC_WPSA_Ric [facility], [address], [place] [address] , Ph. 2021-11-20 2021-11-20 Outpatient Claude, Ruba PRIV PRIV [id number] 00:00:00 00:00:00 Kirk [id number] 2021-07-08 2021-07-08 Outpatient IHDE_G MMG [facility] [id number] [place] 02:48:00 02:48:00 0113 Medical Group 2021-07-01 2021-07-01 [place]HDE_[place] [id number] [place] 11:11:00 11:11:00 0817 Medical Group 2021-07-01 2021-07-01 [facility] [place] - [id number] M atagor 00:00:00 00:00:00 Pan Dominguez MD: Medical [facility]ica [address], [place] [address] , Ph. [phone] 2021-06-16 2021-06-16 Outpatient EL WASHINGTON, MDA MDA [id number] 09:00:00 23:59:00 GÉNESIS leonard 2021-06-16 2021-06-16 Outpatient EL WASHINGTON, MDA MDA [id number] 15:56:11 17:50:31 GÉNESIS leonard 2021-06-16 2021-06-16 Outpatient EL SHANAFEREO, MDA MDA [id number] 15:57:38 17:49:54 CHRIST leonard 2021-06-16 2021-06-16 Outpatient EL WASHINGTON, MDA MDA [id number] 11:29:21 11:29:21 GÉNESIS leonard 2021-06-16 2021-06-16 Outpatient EL WASHINGTON, MDA MDA [id number] 09:45:21 09:45:21 GÉNESIS leonard 2021-04-21 2021-04-21 Outpatient Teo TEJADA [facility] [id number] [place] 07:45:00 10:32:00 [facility] 2021-02-25 2021-02-25 Outpatient EL WASHINGTON, MDA MDA [id number] 11:15:00 23:59:00 GÉNESIS leonard 2021-02-25 2021-02-25 Outpatient EL LOGAN, MDA MDA [id number] 07:05:07 11:14:00 AMENA Still rso n 2021-02-25 2021-02-25 Outpatient EL WASHINGTON, MDA MDA [id number] 10:17:19 10:49:44 GÉNESIS leonard 2021-02-25 2021-02-25 Outpatient EL LOGAN, MDA MDA [id number] 07:24:47 07:24:47 AMENA Still rso n 2021-02-24 2021-02-24 Outpatient EL LOGAN, MDA MDA [id number] MD 12:10:01 12:10:01 AMENA Still rso n 2021-02-24 2021-02-24 Outpatient EL LOGAN, MDA MDA [id number] 07:28:36 07:28:36 AMENA Still rso n 2021-02-23 2021-02-23 Outpatient EL LOGAN, MDA MDA [id number] 07:26:51 23:59:00 AMENA Still rso n 2021-02-23 2021-02-23 Outpatient EL LOGAN, MDA MDA [id number] MD 07:00:00 07:25:00 AMENA Cheko rso n 2021-02-10 2021-02-10 Outpatient RYLEY LOGAN, MDA MDA [id number] 12:30:00 23:59:00 AMENA Cheko rso n 2021-02-10 2021-02-10 Outpatient EL WASHINGTON, MDA MDA [id number] 16:06:04 18:29:20 GÉNESIS leonard 2021-02-10 2021-02-10 Outpatient EL DESMOND, MDA MDA [id number] 13:16:27 13:16:27 AMENA Cheko rso n 2021-01-08 2021-01-08 Outpatient EL DARREN, MDA MDA [id number] 16:30:00 23:59:00 LEYDI leonard 2020-10-02 2020-10-03 Outpatient EL SOBEIDA, MDA MDA [id number] 16:17:03 07:03:47 CHRIST leonard 2020-10-02 2020-10-02 Outpatient GOPI FERRARIMARIANNE MDA MDA [id number] 14:18:45 16:39:39 Chema leonard 2020-10-02 2020-10-02 Outpatient Raju_P MMG MMG [id number] [place] 02:26:00 02:26:00 0810 [facility] 2020-10-02 2020-10-02 Outpatient Raju_P MMG MMG [id number] [id number] [place] 02:26:00 02:26:00 1118 [facility] 2020-09-25 2020-09-26 Inpatient EL SOBEIDA, MDA HN Surgery [id number] 06:06:00 17:48:00 CHRIST leonard 2020-09-26 2020-09-26 Inpatient EL SOBEIDA, MDA MDA [id number] MD 15:46:25 15:46:28 CHRIST leonard 2020-09-22 2020-09-22 Outpatient RYLEY BRADSHAW, MDA MDA [id number] MD 16:04:23 16:17:57 MARILYN leonard 2020-09-19 2020-09-19 Outpatient EL RENE, MDA MDA [id number] 13:30:00 23:59:00 LOIS leonard 2020-09-19 2020-09-19 Outpatient EL ZAFEREO, MDA MDA [id number] 10:48:30 15:10:24 CHRIST leonard 2020-09-19 2020-09-19 Outpatient EL CENTENIO, MDA MDA [id number] 12:48:39 12:48:39 LOIS leonard 2020-09-09 2020-09-13 Inpatient ER ETCHEGARAY- MDA GIM [id number] 02:17:00 15:28:00 [facility] FABIEN leonard 2020-09-09 2020-09-10 Inpatient SIMBAQUEBA MDA MDA [id number] 23:49:42 00:15:05 CAMERON [facility] EDMUND leonard 2020-09-09 2020-09-09 Inpatient SIMBAQUEBA MDA MDA [id number] 10:00:08 10:24:01 CAMERON [facility] marianne EDMUND n 2020-09-09 2020-09-09 Inpatient SIMBAQUEBA MDA MDA [id number] 09:40:11 09:57:58 CAMERON, [facility] marianne EDMUND n 2020-09-08 2020-09-08 Outpatient EL DIERSING, MDA MDA [id number] 09:55:21 09:55:21 JORGE A leonard 2020-09-04 2020-09-04 Outpatient EL WASHINGTON, MDA MDA [id number] 16:07:09 16:07:09 GÉNESIS leonard 2020-09-04 2020-09-04 Outpatient EL ZAFEREO, MDA MDA [id number] 13:18:30 13:18:30 CHRIST leonard 2020-09-03 2020-09-03 Outpatient EL ZAFEREO, MDA MDA [id number] 14:40:59 15:36:55 CHRIST leonard 2020-09-02 2020-09-02 Outpatient EL FERRARI [facility] MDA MDA [id number] 15:26:29 23:59:00 Chema leonard 2020-09-02 2020-09-02 Outpatient EL WASHINGTON, MDA MDA [id number] 15:39:52 16:32:08 GÉNESIS leonard 2020-09-02 2020-09-02 Outpatient EL DIERSING, MDA MDA [id number] 12:22:22 16:08:24 JORGE A leonard 2020-09-02 2020-09-02 Outpatient RYLEY RAMIREZ, MDA MDA [id number] MD 14:17:15 15:58:38 JUSTO Still ainsleyo n 2020-09-02 2020-09-02 Outpatient RYLEY RAMIREZ, MDA MDA [id number] 11:30:00 15:25:00 JUSTO Shawzack schmitzo n 2020-08-26 2020-08-26 Outpatient RYLEY BANKS, MDA MDA [id number] MD 07:49:07 23:59:00 LEYDI leonard 2020-08-26 2020-08-26 Outpatient RYLEY MARTÍNEZ, MDA MDA [id number] MD 15:04:57 17:13:00 HENRY leonard 2020-08-26 2020-08-26 Outpatient RYLEY BANKS, MDA MDA [id number] MD 12:03:21 12:03:21 LEYDI leonard 2020-08-26 2020-08-26 Outpatient RYLEY BANKS, MDA MDA [id number] MD 08:34:13 08:34:13 LEYDI Bear o horacio 2020-08-26 2020-08-26 Outpatient SOBEIDA, MDA MDA [id number] MD 07:35:15 07:35:28 CHRIST leonard 2020-08-24 2020-08-24 Outpatient RYLEY MARTÍNEZ, MDA MDA [id number] MD 13:17:08 13:17:08 HENRY leonard 2020-08-21 2020-08-21 Outpatient TANNEREO, MDA MDA [id number] MD 18:14:37 18:14:37 CHRIST leonard 2020-08-21 2020-08-21 Outpatient TANNEREO, MDA MDA [id number] MD 18:12:59 18:12:59 CHRIST leonard 2020-08-21 2020-08-21 Outpatient ZAMAGUEEO, MDA MDA [id number] MD 18:10:43 18:10:43 CHRIST leonard 2020-07-19 2020-07-19 Outpatient [facility] [id number] [place] 00:00:00 00:00:00 DANNY [address] 2020-07-19 2020-07-19 Outpatient CHAI, [facility] [id number] [place] 00:00:00 00:00:00 DANNY [address] 2020-06-28 2020-06-28 Outpatient CHAI, [facility] [id number] [place] 00:00:00 00:00:00 DANNY [address] 2020-01-19 2020-01-19 Outpatient Raju_P MMG MMG [id number] [place] 10:37:00 10:37:00 0306 [facility] 2020-01-09 2020-01-09 Outpatient Raju_P MMG MMG [id number] [place] 05:43:00 05:43:00 0225 [facility] 2020-01-08 2020-01-08 Outpatient Raju_P MMG MMG [id number] [place] 12:37:00 12:37:00 0224 [facility] 2020-01-05 2020-01-05 Outpatient Raju_P MMG MMG [id number] [place] 11:52:00 11:52:00 0221 [facility] 2020-01-04 2020-01-04 Outpatient Raju_P MMG MMG [id number] [place] 12:43:00 12:43:00 0220 [facility] 2020-01-04 2020-01-04 Palivela MMG [place] - [id number] [place] 00:00:00 00:00:00 MD Jamey: [address], [place] - [facility] 201, Otolaryngol [facility] [address] , Ph. 2019-12-04 2019-12-04 Outpatient Raju_P MMG MMG [id number] [place] 05:04:00 05:04:00 0120 [facility] 2019-07-28 2019-07-28 Outpatient 3 [facility] [id number] 06:18:00 13:00:00 [facility] Results Test Description Test Time Test Comments Results Result Comments Source TSH 2022-06-18 15:58:50 Test Item Value Reference Range Interpretation Comme nts TSH (test code = 63388-4) 8.63 See_Comment H No te: New Methodology and Reference Range change effective 03/03/2018 at 14 00 Testing Performed at B Lab Electrical Tech/Project Manager [facility], [address], [place] [address] [Automated mess age] The system which generated this result transmitted ref erence range: 0.27 - 4.20 mcu nit/mL. The reference range was not used to interpret this result as normal/abnormal . Lab Interpretation (test code Abnormal = 49105-1) [id number] 15:58:46 Test Item Value Reference Range Interpretation Comments T4 Free (test code 1.45 ng/dL 0.93-1.70 Testing P erformed at [facility] = 3024-7) Lab Electrical Tech/Project Manager [facility], [address], [place] [address] [facility] [id number] 15:55:19 Test Item Value Reference Range Interpretation Comments POC Crea (test 1.2 mg/dL 0.6-1.3 Medications, code = 69592-4) especially h ydroxyurea or supplements, such as ascorbate, c an interfere with test results causing a falsely and significantly h igher result than exp ected. If a problem is suspected with a patient's resul t, a sample should b e sent to the laborato for confirmatory te sting. Method descript ion: The i-STAT is a n analyzer used f or in vitro quantific ation of various anal ytes in whole blood. Th e device uses a s lico disposable cart ridge which contains microfabricated sensors, a jose bration solution, fluid ics system, and a w aste chamber. Each t est cartridge conta ins chemically sens itive biosensors on a silicon chip th at are configured to p erform specific tests. The microfabricated sensors measure analyte concent ration by an electroch emical assay. POC eGFR-AA (test 73 See_Comment Normal eGF R >= 60 code = 47165-6) mL/min/1.73 m2 The eGFR is calcula gabe using the CKD-E PI equation. The e GFR declines with a ge. eGFR <60 mL/min /1.73 m2 is considere d as "decreased" Thi s equation should only be used for pat ients 18 and older. According to e National Kidney Foundation's dney Disease Outcome Quality Initiat andreina (KDOQI) classif ication and 2012 Kidney Disease Improvi ng Global Outcomes (KDIGO) Clinica l Practice Guidel ine, the stage of CK D should be categ orized based on estima gabe GFR. Stage Desc ription GFR mL/min/1.73 m21 Kidney damage w ith normal or high GFR >=902 Kidney da mage with mild decre ase in GFR 60-893a Mil d to moderate decrea se in GFR 45-593b Mod erate to severe decre ase in GFR 30-444 [place] re decrease in GFR 15-295 Kidney failure <15 (or dialysis) [Auto mated message] The sy stem which generated this result transmit gabe reference range : >=60 mL/min/1.73 m2. The reference range was not used to int erpret this result as normal/abnormal . POC eGFR-NERIS (test 63 See_Comment Normal eG FR >= 60 code = 94133-7) mL/min/1.73 m2 The eGFR is calcula gabe using the CKD-E PI equation. The e GFR declines with a ge. eGFR <60 mL/min /1.73 m2 is considere d as "decreased" Thi s equation should only be used for pat ients 18 and older. According to e National Kidney Foundation's dney Disease Outcome Quality Initiat andreina (KDOQI) classif ication and 2012 Kidney Disease Improvi ng Global Outcomes (KDIGO) Clinica l Practice Guidel ine, the stage of CK D should be categ orized based on estima gabe GFR. Stage Desc ription GFR mL/min/1.73 m21 Kidney damage w ith normal or high GFR >=902 Kidney da mage with mild decre ase in GFR 60-893a Mil d to moderate decrea se in GFR 45-593b Mod erate to severe decre ase in GFR 30-444 [place] re decrease in GFR 15-295 Kidney failure <15 (or dialysis) [Auto mated message] The sy stem which generated this result transmit gabe reference range : >=60 mL/min/1.73 m2. The reference range was not used to int erpret this result as normal/abnormal . POC Clean Dev Yes (test code = 6672) Performing Lab MDA [address] [place] [employer] (test code = [facility] And west[place] [address]) Clinical Lab, [address], [place], [place] [address]; Boat Loader: Elena Lewis MD [facility] 15:46:44 Test Item Value Reference Range Interpretation Comments Thyroglobulin (test 1.59-50.03 L Referenc e range in code = 7622) athyrotic patie nts is <0.1 ng/mL. Due to varying antigen specificity, af finity and avidity of capture and conjugate antibodies in t heir epitope reactio ns, some thyroglobu yelitza samples may not dilute linearly when r esults exceed 450 ng/m L. Thyroglob Ab (test code See_Comment Due to varying antigen = 7621) specificity, af finity and avidity of capture and conjugate antibodies in t heir epitope reactio ns, some thyroglobu yelitza antibody sample s may not dilute line [place] when results ex ceed 1650 IU/mL. [Au tomated message] The sy stem which generated this result transmit gabe reference range : <=3.9 IU/ml. The reference range was not used to int erpret this result as normal/abnormal . Lab Interpretation Abnormal (test code = 95608-7) [facility] 11:01:19 Test Item Value Reference Range Interpretation Comments Right (test code = Type C Peak is on Left Right) Left (test code = Type A Normal Left) [facility] [id number] 10:22:58 Test Item Value Reference Range Interpretation Comments Sodium Level (test code = Sodium 140.0 mmol/L 135.0-145.0 Level) Potassium Level (test code = 4.1 mmol/L 3.5-5.1 Potassium Level) Chloride Level (test code = 104 mmol/L 98-105 Chloride Level) CO2 (test code = CO2) 29 mmol/L 22-29 Anion Gap (test code = Anion 7 mmol/L 7-16 Gap) BUN (test code = BUN) 16.40 mg/dL 8.00-23.00 Creatinine Level (test code = 1.00 mg/dL 0.70-1.20 Creatinine Level) BUN/Creat Ratio (test code = 16 N BUN/Creat Ratio) Glucose Level (test code = 115 mg/dL 70-115 Glucose Level) Calcium Level (test code = 9.0 mg/dL 8.3-10.5 Calcium Level) Alk Phos (test code = Alk Phos) 27 U/L 40-129 L Bilirubin Total (test code = 0.2 mg/dL 0.1-0.9 Bilirubin Total) Albumin Level (test code = 4.1 g/dL 3.5-5.2 Albumin Level) Protein Total (test code = 5.7 g/dL 6.4-8.3 L Protein Total) ALT (test code = ALT) 19 U/L 1-41 AST (test code = AST) 15 U/L 1-40 Globulin (test code = Globulin) 1.6 g/dL 2.9-3.1 L A/G Ratio (test code = A/G 2.6 ratio N Ratio) Comprehensive Metabolic [id number] 10:22:58 Test Item Value Reference Range Interpretation Comments Sodium Level (test 140.0 mmol/L 135.0-145.0 code = Sodium Level) Potassium Level 4.1 mmol/L 3.5-5.1 (test code = Potassium Level) Chloride Level (test 104 mmol/L 98-105 code = Chloride Level) CO2 (test code = 29 mmol/L 22-29 CO2) Anion Gap (test code 7 mmol/L 7-16 = Anion Gap) BUN (test code = 16.40 mg/dL 8.00-23.00 BUN) Creatinine Level 1.00 mg/dL 0.70-1.20 (test code = Creatinine Level) BUN/Creat Ratio 16 N (test code = BUN/Creat Ratio) Glucose Level (test 115 mg/dL 70-115 code = Glucose Level) Calcium Level (test 9.0 mg/dL 8.3-10.5 code = Calcium Level) Alk Phos (test code 27 U/L 40-129 L = Alk Phos) Bilirubin Total 0.2 mg/dL 0.1-0.9 (test code = Bilirubin Total) Albumin Level (test 4.1 g/dL 3.5-5.2 code = Albumin Level) Protein Total (test 5.7 g/dL 6.4-8.3 L code = Protein Total) ALT (test code = 19 U/L 1-41 ALT) AST (test code = 15 U/L 1-40 AST) Globulin (test code 1.6 g/dL 2.9-3.1 L = Globulin) A/G Ratio (test code 2.6 ratio N = A/G Ratio) eGFR AA (test code = >60 N eGFR (e stimated eGFR AA) mL/min/1.73 m2 Glomerular Filtration Rate ) is an estimated va lue, calculated from the patient's serum creatinine usin g the MDRD equation. It is NOT the patient 's actual GFR. The eGFR provides a more clinically usef ul measure of kidn ey disease than se rum creatinine alone.This calculation marina es sex and race in to account, if the information is provided. If th e race is not provided, and t he patient is -Marla n, multiply by 1.2 12. If sex is not provided, and t he patient is fema le, multiply by 0.7 42. Results for pat ients <18 years of ag e have not been validated by th e MDRD study and should be interpreted wit h caution. eGFR R esult Interpretation: eGFR > or = 60 is in the Normal RangeeGF R < 60 may mean kid ana diseaseeGFR < 1 5 may mean kidney failure Rang es recommended by the National Kidney Foundation, http://nkdep.ni h.gov Comprehensive Metabolic [id number] 10:22:58 Test Item Value Reference Range Interpretation Comments Sodium Level (test 140.0 mmol/L 135.0-145.0 code = Sodium Level) Potassium Level 4.1 mmol/L 3.5-5.1 (test code = Potassium Level) Chloride Level (test 104 mmol/L 98-105 code = Chloride Level) CO2 (test code = 29 mmol/L 22-29 CO2) Anion Gap (test code 7 mmol/L 7-16 = Anion Gap) BUN (test code = 16.40 mg/dL 8.00-23.00 BUN) Creatinine Level 1.00 mg/dL 0.70-1.20 (test code = Creatinine Level) BUN/Creat Ratio 16 N (test code = BUN/Creat Ratio) Glucose Level (test 115 mg/dL 70-115 code = Glucose Level) Calcium Level (test 9.0 mg/dL 8.3-10.5 code = Calcium Level) Alk Phos (test code 27 U/L 40-129 L = Alk Phos) Bilirubin Total 0.2 mg/dL 0.1-0.9 (test code = Bilirubin Total) Albumin Level (test 4.1 g/dL 3.5-5.2 code = Albumin Level) Protein Total (test 5.7 g/dL 6.4-8.3 L code = Protein Total) ALT (test code = 19 U/L 1-41 ALT) AST (test code = 15 U/L 1-40 AST) Globulin (test code 1.6 g/dL 2.9-3.1 L = Globulin) A/G Ratio (test code 2.6 ratio N = A/G Ratio) eGFR AA (test code = >60 N eGFR (e stimated eGFR AA) mL/min/1.73 m2 Glomerular Filtration Rate ) is an estimated va lue, calculated from the patient's serum creatinine usin g the MDRD equation. It is NOT the patient 's actual GFR. The eGFR provides a more clinically usef ul measure of kidn ey disease than se rum creatinine alone.This calculation marina es sex and race in to account, if the information is provided. If th e race is not provided, and t he patient is -Marla n, multiply by 1.2 12. If sex is not provided, and t he patient is fema le, multiply by 0.7 42. Results for pat ients <18 years of ag e have not been validated by th e MDRD study and should be interpreted wit h caution. eGFR R esult Interpretation: eGFR > or = 60 is in the Normal RangeeGF R < 60 may mean kid ana diseaseeGFR < 1 5 may mean kidney failure Rang es recommended by the [employer], http://nkdep.ni h.gov eGFR Non-AA (test >60.00 N eGFR (leslee mated code = eGFR Non-AA) mL/min/1.73 m2 Glomer ular Filtration Rate ) is an estimated va lue, calculated from the patient's serum creatinine usin g the MDRD equation. It is NOT the patient 's actual GFR. The eGFR provides a more clinically usef ul measure of kidn ey disease than se rum creatinine alone.This calculation marina es sex and race in to account, if the information is provided. If th e race is not provided, and t he patient is -Marla n, multiply by 1.2 12. If sex is not provided, and t he patient is fema le, multiply by 0.7 42. Results for pat ients <18 years of ag e have not been validated by th e MDRD study and should be interpreted wit h caution. eGFR R esult Interpretation: eGFR > or = 60 is in the Normal RangeeGF R < 60 may mean kid ana diseaseeGFR < 1 5 may mean kidney failure Rang es recommended by the National Kid[employer] Foundation, http://nkdep.ni h.gov Prothrombin Time and [id number] 10:10:39 Test Item Value Reference Range Interpretation Comments Prothrombin Time (test code = 11.1 seconds 9.8-13.4 Prothrombin Time) INR (test code = INR) 1.0 ratio 0.6-1.2 Partial Thromboplastin [id number] 10:10:39 Test Item Value Reference Range Interpretation Comments Partial Thromboplastin Time 30.70 seconds 24.39-37.25 (test code = Partial Thromboplastin Time) Complete Blood Count with [id number] 10:06:51 Test Item Value Reference Range Interpretation Comments WBC (test code = WBC) 5.7 x10 4.4-10.5 RBC (test code = RBC) 4.83 x10 4.10-5.70 Hgb (test code = Hgb) 14.2 g/dL 13.4-17.4 MCV (test code = MCV) 86.10 fL 80.00-100.00 Hct (test code = Hct) 41.6 % 38.7-52.0 MCHC (test code = 34.10 g/dL 32.00-37.50 MCHC) RDW CV (test code = 12.7 % 11.5-14.5 RDW CV) MCH (test code = MCH) 29.4 pg 27.0-32.5 Platelets (test code = 141.0 x10 140.0-440.0 Platelets) MPV (test code = MPV) 9.7 fL N Slide Review (test Auto Auto Result cr eated by code = Slide Review) GL_SJM_ SLIDE_REV_AUTO GL_SJM_XN_RFLX GL_SJM_XN_RFLX nRBC (test code = 0 N nRBC) NRBC Abs (test code = 0.00 x10 N NRBC Abs) IPF (test code = IPF) 1 % N Automated [id number] 10:06:51 Test Item Value Reference Range Interpretation Comments Neutro Auto (test code = Neutro 61.6 % 36.0-70.0 Auto) Lymph Auto (test code = Lymph Auto) 27.5 % 12.0-44.0 Winkler Auto (test code = Winkler Auto) 8.6 % 0.0-11.0 Eos, Auto (test code = Eos, Auto) 1.9 % 0.0-7.0 Basophil Auto (test code = Basophil 0.2 % 0.0-2.0 Auto) Neutro Absolute (test code = Neutro 3.5 x10 1.6-7.4 Absolute) Lymph Absolute (test code = Lymph 1.56 x10 .50-4.60 Absolute) Winkler Absolute (test code = Winkler .49 x10 .00-1.20 Absolute) Eos Absolute (test code = Eos 0.11 x10 0.00-0.74 Absolute) Baso Absolute (test code = Baso 0.01 x10 0.00-0.21 Absolute) IG [id number] 10:06:51 Test Item Value Reference Range Interpretation Comments IG (test code = IG) 0.2 % 0.0-5.0 IG Abs (test code = IG Abs) 0 x10 N Complete Blood Count with [id number] 10:06:51 Test Item Value Reference Range Interpretation Comments WBC (test code = WBC) 5.7 x10 4.4-10.5 RBC (test code = RBC) 4.83 x10 4.10-5.70 Hgb (test code = Hgb) 14.2 g/dL 13.4-17.4 MCV (test code = MCV) 86.10 fL 80.00-100.00 Hct (test code = Hct) 41.6 % 38.7-52.0 MCHC (test code = 34.10 g/dL 32.00-37.50 MCHC) RDW CV (test code = 12.7 % 11.5-14.5 RDW CV) MCH (test code = MCH) 29.4 pg 27.0-32.5 Platelets (test code = 141.0 x10 140.0-440.0 Platelets) MPV (test code = MPV) 9.7 fL N Slide Review (test Auto Auto Result cr eated by code = Slide Review) GL_SJM_ SLIDE_REV_AUTO GL_SJM_XN_RFLX GL_SJM_XN_RFLX nRBC (test code = 0 N nRBC) NRBC Abs (test code = 0.00 x10 N NRBC Abs) Pos Count XN (test A N code = Pos Count XN) IPF (test code = IPF) 1 % N
[2023-01-01 09:22] LABS: ALT/SGPT 27 U/L (16-61); AST/SGOT 19 U/L (15-37); Albumin 3.6 g/dL (3.4-5.0); Alkaline Phosphatase 29 U/L (45-117); BUN Blood Urea Nitrogen 18 mg/dL (7-18); Bicarbonate 28 mmol/L (21-32); Bilirubin Total 0.2 mg/dL (0.2-1.0); Glomerular Filtration Rate 77 ml/min (=/>90); Glucose Level 114 mg/dL (74-106); Magnesium 2.2 mg/dL (1.6-2.4); NT PRO-BNP 137 pg/mL (<125); Potassium 3.7 mmol/L (3.5-5.1); Protein, Total 6.4 g/dL (6.4-8.2); Sodium Level 141 mmol/L (136-145); Troponin High Sensitivity 5.4 pg/mL (<58.9)
[2023-01-01 09:25] LABS: Bilirubin Direct < 0.1 mg/dL (0-0.2)
[2023-01-01 09:38] LABS: Absolute Lymphocytes (CBC) 1.3 K/uL (0.7-4.9); Hematocrit 42.5 % (39.6-49.0); Lymphocytes % 24.9 % (15.3-44.8); MCV 83.7 fL (80-100); MPV 7.9 fL (7.6-11.3); RBC Red Blood Cell Count 5.08 M/uL (4.33-5.43)
--- NOTE | 2023-01-01 09:42 | RAD REPORT ---
EXAM DESCRIPTION: RAD - Chest Single View - 01/01/2023 9:30 am CLINICAL HISTORY: sob COMPARISON: No comparisons FINDINGS: Lines: None. Lungs: No evidence of edema or pneumonia. Pleural: No significant pleural effusions or pneumothorax. Cardiac: The heart size is within normal limits. Mediastinum: Within normal limits. Bones: No acute fractures. Other: None IMPRESSION: No acute cardiopulmonary disease.
--- NOTE | 2023-01-01 09:46 | EDPHYS ---
Physician Documentation [facility] Name: Andre Omer Age: 67 yrs Sex: Male : 1955 Arrival Date: 01/01/2023 Time: 08:34 Bed 15 Private MD: ED Physician Hilario Davis HPI: 01/01 08:36 This 67 yrs old Male presents to ER via Unassigned with complaints of hypoxia. sb4 08:36 Patient is a 67 year old male with past medical history of Medle's esophagus, sb4 DVT/PEs, thyroid cancer s/p thyroidectomy, obesity, and JASEN who presented via EMS from . Patient was having an EGD this morning when he apparently desaturated to 40% after receiving 300 mg of propofol. Patient saturating 98% on room air upon arrival, BP stable, answering questions appropriately. . Historical: - Allergies: 08:41 Bactrim; ap3 08:41 Sulfa (Sulfonamide Antibiotics); ap3 08:41 Tagamet; ap3 - Home Meds: 08:41 Xarelto oral [Active]; ap3 - PMHx: 08:41 PE; DVT; Gastroesophageal reflux disease; Sleep apnea; thyroid cancer; ap3 - PSHx: 08:41 Thyroidectomy; ap3 - Immunization history:: Client reports receiving the 2nd dose of the Covid vaccine, Flu vaccine is up to date. - Social history:: Smoking status: Patient denies any tobacco usage or history of. ROS: 08:44 Constitutional: Negative for fever, chills, and weight loss, Eyes: Negative for injury, sb4 pain, redness, and discharge, ENT: Negative for injury, pain, and discharge, Cardiovascular: Negative for chest pain, palpitations, and edema, Respiratory: Negative for shortness of breath, cough, wheezing, and pleuritic chest pain, Abdomen/GI: Negative for abdominal pain, nausea, vomiting, diarrhea, and constipation, MS/Extremity: Negative for injury and deformity, Skin: Negative for injury, rash, and discoloration, Neuro: Negative for headache, weakness, numbness, tingling, and seizure. Exam: 08:44 Head/Face: Normocephalic, atraumatic. Eyes: Extra-ocular motions intact. Periorbital sb4 areas with no swelling, redness, or edema. ENT: Mucous membranes moist. Cardiovascular: Regular rate and rhythm with a normal S1 and S2. Respiratory: Lungs have equal breath sounds bilaterally, clear to auscultation and percussion. No rales, rhonchi or wheezes noted. No increased work of breathing, no retractions or nasal flaring. Abdomen/GI: Soft, non-tender, no distension. Skin: Warm, dry with normal turgor. Normal color with no rashes, no lesions, and no evidence of cellulitis. MS/ Extremity: Pulses equal, no cyanosis. Neurovascular intact. Full, normal range of motion. Neuro: Awake and alert, GCS 15, oriented to person, place, time, and situation. Cranial nerves II-XII grossly intact. Motor strength 5/5 in all extremities. Sensory grossly intact. Cerebellar exam normal. Normal gait. 08:44 Constitutional: The patient appears in no acute distress, alert, awake, non-toxic, obese. 08:57 ECG was reviewed by the Attending Physician. sb4 Vital Signs: 08:36 BP 127 / 76; Pulse 54; Resp 14; Temp 97.9(O); Pulse Ox 99% on R/A; Weight 131.54 kg; ap3 09:29 BP 130 / 79; Pulse 54; Pulse Ox 100% ; ap3 09:55 BP 127 / 78; Pulse 45; Resp 18; Pulse Ox 97% on R/A; kr3 MDM: 08:34 Patient medically screened. sb4 08:50 Differential Diagnosis adverse reaction to propofol, PE, DVT, CHF, COPD, asthma. sb4 09:42 Data reviewed: vital signs, nurses notes, lab test result(s), cardiac enzymes, CBC, sb4 electrolytes, EKG, radiologic studies, plain films, I have discussed the patient's presentation/case with the attending Emergency Department Physician; and as a result, I will discharge patient. Historians other than the Patient: Spouse/Significant Other: . Care significantly affected by the following chronic conditions: Obesity. ED course: Discussed negative workup with patient. Patient has no complaints, saturating well on room air, and feels comfortable going home. Return precautions discussed and understood.. 09:47 Independent interpretation of the following test(s) in the Emergency Department EKG: sb4 See my EKG interpretation above. Test considered but Not performed: CT: considered chest CTA given history of DVT/PEs but ddimer is negative, symptoms likely secondary to over sedation from propofol, and symptoms have resolved completely. 99% on RA. No dyspnea. Chest xray clear.. 01/01 08:53 Order name: Basic Metabolic Panel; Complete Time: 09:26 EDMS 01/01 08:53 Order name: CBC with Automated Diff; Complete Time: 09:40 EDMS 01/01 08:53 Order name: D-Dimer; Complete Time: 09:37 EDMS 01/01 08:53 Order name: Liver (Hepatic) Function; Complete Time: 09:26 EDMS 01/01 08:53 Order name: Magnesium; Complete Time: 09:26 EDMS 01/01 08:53 Order name: NT PRO-BNP; Complete Time: 09:26 EDMS 01/01 08:35 Order name: EKG; Complete Time: 11:46 sb4 01/01 08:35 Order name: Cardiac monitoring; Complete Time: 08:47 sb4 01/01 08:35 Order name: EKG - Nurse/Tech; Complete Time: 08:58 sb4 01/01 08:35 Order name: IV Saline Lock; Complete Time: 08:47 sb4 01/01 08:35 Order name: Labs collected and sent; Complete Time: 09:20 sb4 01/01 08:35 Order name: O2 Per Protocol; Complete Time: 08:47 sb4 01/01 08:35 Order name: O2 Sat Monitoring; Complete Time: 08:47 sb4 01/01 08:53 Order name: EKG Electrocardiogram EDMS 01/01 08:53 Order name: Protime (+INR); Complete Time: 09:37 EDMS 01/01 08:53 Order name: Troponin High Sensitivity; Complete Time: 09:26 EDMS 01/01 08:53 Order name: Chest Single View; Complete Time: 09:45 EDMS EC:57 Rate is 49 beats/min. Rhythm is regular, Sinus bradycardia. QRS Holliday is Normal. DE sb4 interval is normal at 49 msec. QRS interval is normal at 88 msec. QT interval is normal at 476 msec. Administered Medications: No medications were administered Disposition: 14:42 Co-signature as Attending Physician, Hilario Davis MD I reviewed the patient's care rt provided by the Advanced Practice Provider and agree with the diagnosis and treatment plan. Disposition Summary: 01/01/23 09:45 Discharge Ordered Location: Home sb4 Problem: new sb4 Symptoms: are resolved sb4 Condition: Stable sb4 Diagnosis - Adverse effect of other drugs, medicaments and biological substances sb4 Followup: sb4 - With: Private Physician - When: As needed - Reason: Recheck today's complaints, Continuance of care, Re-evaluation by your physician Forms: - Medication Reconciliation Form sb4 - Thank You Letter sb4 - Antibiotic Education sb4 - Prescription Opioid Use sb4 Signatures: Dispatcher [employer] Bhavana Bradford RN RN ap3 Radha Suggs, PA-C PA-C sb4 Hilario Davis MD MD rt Corrections: (The following items were deleted from the chart) 08:45 08:41 PMHx: Pulmonary emphysema; ap3 ap3 08:45 08:41 PSHx: Tonsillectomy; 3 3 08:49 08:36 Patient is a 67 year old male with past medical history of Medel's esophagus, sb4 DVT/PEs, thyroid cancer s/p thyroidectomy who presented via EMS . sb4
--- NOTE | 2023-01-01 09:46 | ER ---
Nurse's Notes [facility] Name: Andre Omer Age: 67 yrs Sex: Male : 1955 Arrival Date: 01/01/2023 Time: 08:34 Bed 15 Private MD: Diagnosis: Adverse effect of other drugs, medicaments and biological substances Presentation: 01/01 08:36 Chief complaint: EMS states: patient was having a upper scope done at the center, ap3 when it was reported the patients SpO2 dropped to 40%. upon EMS arrival, patients Sp02 was 98% on room air. Patient does not complain of shortness of breath at this time, but reports that he has had some mild congestion for a few days. Coronavirus screen: At this time, the client does not indicate any symptoms associated with coronavirus-19. Ebola Screen: No symptoms or risks identified at this time. Initial Sepsis Screen: Does the patient meet any 2 criteria? No. Patient's initial sepsis screen is negative. Does the patient have a suspected source of infection? No. Patient's initial sepsis screen is negative. Risk Assessment: Do you want to hurt yourself or someone else? Patient reports no desire to harm self or others. Onset of symptoms was January 01, 2023. 08:36 Method Of Arrival: EMS: [facility] ap3 08:36 Acuity: PATT 3 ap3 Triage Assessment: 08:45 General: Appears in no apparent distress. Behavior is calm, cooperative, appropriate ap3 for age. Pain: Denies pain. EENT: Reports nasal congestion. Neuro: Level of Consciousness is awake, alert, obeys commands, Oriented to person, place, time, situation. Cardiovascular: Patient's skin is warm and dry. Respiratory: Reports no shortness of breath at this time Airway is patent Respiratory effort is even, unlabored, Respiratory pattern is regular, symmetrical. Historical: - Allergies: 08:41 Bactrim; ap3 08:41 Sulfa (Sulfonamide Antibiotics); ap3 08:41 Tagamet; ap3 - Home Meds: 08:41 Xarelto oral [Active]; ap3 - PMHx: 08:41 PE; DVT; Gastroesophageal reflux disease; Sleep apnea; thyroid cancer; ap3 - PSHx: 08:41 Thyroidectomy; ap3 - Immunization history:: Client reports receiving the 2nd dose of the Covid vaccine, Flu vaccine is up to date. - Social history:: Smoking status: Patient denies any tobacco usage or history of. Screenin:46 [facility] ED Fall Risk Assessment (Adult) History of falling in the last 3 months, ap3 including since admission No falls in past 3 months (0 pts). Abuse screen: Denies threats or abuse. Nutritional screening: No deficits noted. Tuberculosis screening: No symptoms or risk factors identified. Assessment: 09:55 Reassessment: Patient appears in no apparent distress at this time. Patient and/or kr3 family updated on plan of care and expected duration. Pain level reassessed. Patient is alert, oriented x 3, equal unlabored respirations, skin warm/dry/pink. Vital Signs: 08:36 BP 127 / 76; Pulse 54; Resp 14; Temp 97.9(O); Pulse Ox 99% on R/A; Weight 131.54 kg; ap3 09:29 BP 130 / 79; Pulse 54; Pulse Ox 100% ; ap3 09:55 BP 127 / 78; Pulse 45; Resp 18; Pulse Ox 97% on R/A; kr3 ED Course: 08:34 Patient arrived in ED. sb4 08:34 [facility] sb4 08:34 Hilario Davis MD is Attending Physician. sb4 08:35 Bhavana Renteria, LORETTA is Primary Nurse. ap3 08:41 Triage completed. ap3 08:46 Arm band placed on right wrist. ap3 08:47 Patient has correct armband on for positive identification. Bed in low position. Call ap3 light in reach. Side rails up X2. Adult w/ patient. assistant hvac mechanic on. Pulse ox on. NIBP on. Door closed. Noise minimized. Warm blanket given. 08:47 Maintain EMS IV. Dressing intact. Good blood return noted. Site clean \T\ dry. Gauge \T\ ap 3 site: 22g right hand. 08:58 Initial lab(s) drawn, by me, sent to lab. EKG done, by ED staff. tm3 09:22 IV discontinued, intact, bleeding controlled, No redness/swelling at site. Pressure ap3 dressing applied, patients IV was accidentally DC'd when patient moved his arm. bleeding controlled and catheter is intact. 09:31 Chest Single View In Process Unspecified. EDMS 09:56 No provider procedures requiring assistance completed. kr3 Administered Medications: No medications were administered Medication: 08:47 VIS not applicable for this client. ap3 Outcome: 09:45 Discharge ordered by . sb4 09:56 Discharged to home ambulatory. kr3 09:56 Condition: stable 09:56 Discharge instructions given to patient, Instructed on discharge instructions, follow up and referral plans. Demonstrated understanding of instructions, follow-up care. 09:57 Patient left the ED. kr3 Signatures: Dispatcher [employer] EDMS Jasson Adams 3 Bhavana Renteria RN RN ap3 Marie Ferrera RN RN kr3 Radha Suggs, PA-C PA-C sb4 Corrections: (The following items were deleted from the chart) 08:45 08:41 PMHx: Pulmonary emphysema; ap3 ap3 08:45 08:41 PSHx: Tonsillectomy; ap3 ap3
[2023-01-01 10:01] VITALS: TEMP 97.9
[2023-01-01 10:03] VITALS: BP 127/78; O2SAT 97
--- NOTE | 2023-01-04 12:46 | EKG ---
Test Date: 2023-01-01 Test Time: 08:54:28 Health Technician Hearing: DINESH MEASUREMENT RESULTS: Intervals: Rate: 49 MT: 162 QRSD: 88 QT: 476 QTc: 429 [place]: P: 37 MT: 162 QRS: 41 T: 44 INTERPRETIVE STATEMENTS: Marked sinus bradycardia Abnormal ECG No previous ECG available for comparison Electronically Signed On 01-04-23 12:38:43 MARKETING INFORMATION COORDINATOR by Titus Christiansen
== END 2023-01-01 09:57 | disposition home or self-care (01) ==
LOC: ER 08:30
DX: T50.995A Adverse effect of other drugs, medicaments and biological substances, initial encounter (principal); Z86.718 Personal history of other venous thrombosis and embolism; Z79.01 Long term (current) use of anticoagulants; Z88.1 Allergy status to other antibiotic agents; Z88.2 Allergy status to sulfonamides; Z88.8 Allergy status to other drugs, medicaments and biological substances
CPT/HCPCS: 36415; 71045; 80048; 80076; 83735; 83880; 84484; 85025; 85379; 85610; 93005; 99284